=== PATIENT | female | born 1980 | race Two or more races ===

== ENCOUNTER 2020-04-06 12:07 | Outpatient (REF) | payer MEDICAID, OTHER, SELFPAY | END 2020-04-06 12:08 | disposition home or self-care (01) | LOC: HO.LAB 12:07 | PROVIDERS: Visit Provider Internal Medicine | DX: Z20.822 Contact with and (suspected) exposure to COVID-19 (principal) | CPT/HCPCS: 36415; C9803; U0003; U0005 ==

== ENCOUNTER 2020-06-09 11:22 | Outpatient (REF) | payer MEDICAID, OTHER, SELFPAY ==
[2020-06-09 13:30] LABS: SARS COV2 PCR INHOUSE POSITIVE (Negative)
== END 2020-06-09 11:23 | disposition home or self-care (01) ==
LOC: HO.LAB 11:22
PROVIDERS: Visit Provider Internal Medicine
DX: Z20.822 Contact with and (suspected) exposure to COVID-19 (principal)
CPT/HCPCS: C9803; U0003

== ENCOUNTER 2020-07-13 11:38 | Outpatient (REF) | payer MEDICAID, OTHER, SELFPAY ==
--- NOTE | ~2020-07-13 | XR_ITS ---
EXAMINATION: XR LUMBOSACRAL SPINE CLINICAL INFORMATION: COMPARISON: None TECHNIQUE: Three views of the lumbosacral spine. FINDINGS: The vertebral bodies and posterior elements are normal. The disc spaces are preserved and the vertebral alignment is normal. The paraspinal soft tissues are normal. XR/XR lumbar spine 2-3V IMPRESSION: Unremarkable examination.
--- NOTE | ~2020-07-13 | XR_ITS ---
EXAMINATION: XR KNEE, RIGHT CLINICAL INFORMATION: Pain COMPARISON: None TECHNIQUE: Four views of the right knee. FINDINGS: Bones and soft tissues are normal. No fracture or joint effusion. Alignment is anatomic. Joint spaces are well maintained. No abnormal soft tissue calcification. XR/XR knee RT 4V IMPRESSION: Normal right knee.
== END 2020-07-13 11:39 | disposition home or self-care (01) ==
LOC: HO.XRAY 11:38
PROVIDERS: PCP Family Medicine; Visit Provider Family Medicine
DX: M25.561 Pain in right knee (principal); M54.41 Lumbago with sciatica, right side
CPT/HCPCS: 72100; 73564

== ENCOUNTER 2021-02-22 10:20 | Outpatient (REF) | payer MEDICAID, OTHER, SELFPAY ==
--- NOTE | ~2021-02-22 | MM_ITS ---
EXAMINATION: MM DIAGNOSTIC DIGITAL BREAST TOMOSYNTHESIS, BILATERAL US DIAGNOSTIC ULTRASOUND BREAST, BILATERAL CLINICAL INFORMATION: 40-year-old with increased palpable fullness with intermittent tenderness mid upper outer left breast. Prior history bilateral fibrocystic changes. No known family history breast cancer. The lifetime risk of breast cancer based on the Tyrer-Cuzick Model is 9%. COMPARISON: Mammography: 04/26/2017 (baseline, diagnostic, BI-RADS 2); bilateral targeted breast ultrasound 04/26/2017. TECHNIQUE: Digital breast tomosynthesis is performed in both the craniocaudal and mediolateral oblique views along with computer-aided detection (CAD). Synthesized 2D images are generated from the tomosynthesis. Ultrasound ultrasound left breast is targeted to the upper outer quadrant. Ultrasound right breast is also included mid upper breast. Both breasts are imaged using grayscale imaging and color Doppler without and with harmonics. FINDINGS: Mammography: The breasts are heterogeneously dense, which may obscure small masses (ACR BI-RADS breast composition Category c). The left breast has round focal parenchymal asymmetry with partly obscured margins in the area of palpable concern mid upper outer quadrant, approximately 3.3 cm in diameter. The right breast has oval focal parenchymal asymmetry mid 12:00 position with partly obscured margins measuring approximately 2.9 cm in diameter. There is no architectural abnormality. No coarsening of the Santhosh's ligaments or skin thickening or retraction. No abnormal calcifications. The axilla are unremarkable. Ultrasound: Left breast ultrasound demonstrates benign simple cyst at site of palpable concern 1:00-2:00 position 9 cm from nipple measuring 3.4 x 3.0 x 2.1 cm. A cyst was noted in this area on prior ultrasound 2018, measuring 1.7 x 1.5 x 0.8 cm at that time. There is no solid mass or architectural abnormality. No focal duct ectasia. Right breast ultrasound demonstrates scattered benign simple cysts upper breast, largest 12:00 position measuring 2.4 cm in diameter. There is overall dimensions of 4 cm diameter when summating the adjacent cysts. Prior ultrasound 2018 noted 2.0 cm cyst near this area. There is no solid mass or architectural abnormality. No focal duct ectasia. Results and management options were discussed with the patient at time of visit, using an aerobics instructor. MM/MM tomosynthesis diagnostic BI IMPRESSION: 1. No mammographic evidence of malignancy. 2. Bilateral simple cysts, largest on left at site of palpable concern measuring 3.4 cm. ASSESSMENT: BI-RADS 2: Benign RECOMMENDATION: 1. If the dominant cyst(s) are symptomatic, therapeutic ultrasound-guided cyst aspiration could be performed if clinically indicated. 2. Otherwise, routine annual screening mammography. This patient's information was entered into a reminder system with a target due date for their next mammogram.
== END 2021-02-22 10:21 | disposition home or self-care (01) ==
LOC: HO.MAMMO 10:20
PROVIDERS: Visit Provider Family Medicine
DX: N63.21 Unspecified lump in the left breast, upper outer quadrant (principal)
CPT/HCPCS: 76642; 77062; 77066

== ENCOUNTER 2021-03-26 11:11 | Outpatient (REF) | payer MEDICAID, OTHER, SELFPAY ==
--- NOTE | ~2021-03-26 | XR_ITS ---
EXAMINATION: XR KNEE, RIGHT CLINICAL INFORMATION: Pain right knee. COMPARISON: Right knee 07/13/2020 TECHNIQUE: Four views of the right knee. FINDINGS: Bones and soft tissues are normal. No fracture or joint effusion. Alignment is anatomic. Joint spaces are well maintained. No abnormal soft tissue calcification. XR/XR knee RT 4V IMPRESSION: Unremarkable right knee. No change from 07/13/2020
== END 2021-03-26 11:12 | disposition home or self-care (01) ==
LOC: HO.XRAY 11:11
PROVIDERS: Absent Provider Family Medicine; PCP Family Medicine; Visit Provider Nurse Practitioner
DX: M25.561 Pain in right knee (principal)
CPT/HCPCS: 73564

== ENCOUNTER 2021-07-05 11:00 | Outpatient (RCR) | payer MEDICAID, OTHER, SELFPAY | END 2021-07-20 11:02 | disposition home or self-care (01) | LOC: HO.PT 11:00 | PROVIDERS: PCP Family Medicine; Visit Provider Family Medicine | DX: M25.561 Pain in right knee (principal) | CPT/HCPCS: 97110; 97140; 97162; 97530 ==

== ENCOUNTER 2021-08-09 10:51 | Outpatient (REF) | payer MEDICAID, OTHER, SELFPAY ==
--- NOTE | ~2021-08-09 | XR_ITS ---
EXAMINATION: XR LUMBOSACRAL SPINE CLINICAL INFORMATION: Lumbago with some left sciatica. COMPARISON: None TECHNIQUE: Three views of the lumbosacral spine. FINDINGS: There is normal lumbar lordosis. The vertebral heights, alignment and disc heights are normal. No visible acute fracture, dislocation or lytic process seen. There is mild sclerosis along the SI joints likely sacroiliitis The paravertebral soft tissues are normal. XR/XR lumbar spine 2-3V IMPRESSION: Unremarkable lumbar spine exam. Bilateral sacroiliitis.
== END 2021-08-09 10:52 | disposition home or self-care (01) ==
LOC: HO.XRAY 10:51
PROVIDERS: Absent Provider Family Medicine; PCP Family Medicine; Visit Provider Emergency Medicine
DX: M54.42 Lumbago with sciatica, left side (principal)
CPT/HCPCS: 72100

== ENCOUNTER 2021-08-16 18:49 | Outpatient (REF) | payer MEDICAID, OTHER, SELFPAY ==
--- NOTE | ~2021-08-16 | MR_ITS ---
EXAMINATION: MR KNEE WITHOUT CONTRAST, RIGHT CLINICAL INFORMATION: Right knee pain. COMPARISON: None TECHNIQUE: MRI of the knee without contrast was performed using routine sequences on a high-field scanner. FINDINGS: MENISCI: Medial Meniscus: Intact Lateral Meniscus: Complex bucket-handle tear of the lateral meniscus with displacement of the flap fragment into the anteromedial aspect of the lateral compartment joint line. The tear extends from the posterior root to the junction of the anterior horn and body. The flap fragment constitutes approximately two-thirds of the meniscal tissue from the posterior horn and body. There is inner margin fraying at the orthotopic meniscal tissue of the posterior horn and body. A horizontal component of the tear propagates into the anterior horn with a small 9 mm parameniscal cyst. LIGAMENTS: Cruciate: Intact. Collateral: Intact. EXTENSOR MECHANISM: Intact. ARTICULAR CARTILAGE/BONE: Patellofemoral Compartment: Normal. Medial Compartment: Tiny marginal osteophytes at the medial compartment. Focal partial-thickness cartilage loss is present at the far lateral margin of the medial femoral condyle weightbearing surface with subtle underlying articular cortical irregularity. Lateral Compartment: There is minimal chondral thinning along the posterior margin of the lateral tibial plateau. Articular cartilage appears otherwise normal. JOINT FLUID AND BURSAE: Trace effusion. No Thompson's cyst. MR/MR knee RT wo con IMPRESSION: 1. Complex, displaced, bucket-handle tear of the lateral meniscus. 2. Minimal arthrosis in the medial and lateral compartments. 3. Trace effusion.
== END 2021-08-16 18:50 | disposition home or self-care (01) ==
LOC: HO.MRI 18:49
PROVIDERS: Visit Provider Emergency Medicine
DX: M25.561 Pain in right knee (principal)
CPT/HCPCS: 73721

== ENCOUNTER 2022-02-03 11:00 | Outpatient (RCR) | payer MEDICAID, OTHER, SELFPAY | END 2022-02-07 13:34 | disposition home or self-care (01) | LOC: HO.PT 11:00 | PROVIDERS: PCP Family Medicine; Visit Provider Nurse Practitioner | DX: M25.561 Pain in right knee (principal) | CPT/HCPCS: 97110; 97112; 97150; 97161; 97530 ==

== ENCOUNTER 2022-03-14 11:06 | Outpatient (REF) | payer MEDICAID, OTHER, SELFPAY ==
--- NOTE | ~2022-03-14 | US_ITS ---
EXAMINATION: US VENOUS ULTRASOUND WITH DOPPLER LOWER EXTREMITY, RIGHT CLINICAL INFORMATION: Right leg pain and swelling. COMPARISON: None TECHNIQUE: Ultrasound of the deep veins is performed from the right hip to the calf with compression sonography and color and pulse Doppler assessment. Spectral analysis with color-flow imaging is performed. FINDINGS: The common femoral vein is compressible and exhibits a normal phasic waveform; this suggests that the iliac veins are widely patent above. Within the proximal thigh, the visualized profunda femoris vein is normal. The examined greater saphenous vein and saphenofemoral junction are normal. Superficial femoral vein is patent in the proximal, mid and distal thigh. Popliteal vein is normal to the level of the trifurcation. On compression chaudhari scale and color Doppler images, the posterior tibial and peroneal veins of the calf are patent. No evidence of Thompson's cyst. US/US venous duplex LE RT IMPRESSION: No evidence of deep vein thrombosis in the right lower extremity.
== END 2022-03-14 11:07 | disposition home or self-care (01) ==
LOC: HO.US 11:06
PROVIDERS: Absent Provider Family Medicine; PCP Family Medicine; Visit Provider Emergency Medicine
DX: R60.0 Localized edema (principal); M79.604 Pain in right leg
CPT/HCPCS: 93971

== ENCOUNTER 2022-03-30 13:36 | Outpatient (REF) | payer MEDICAID, OTHER, SELFPAY ==
--- NOTE | ~2022-03-30 | MR_ITS ---
EXAMINATION: MR KNEE WITHOUT CONTRAST, RIGHT CLINICAL INFORMATION: Anterior right knee pain. Swelling. Meniscal repair in November 2021. Recurrence of pain and swelling following surgery. COMPARISON: Right knee MRI dated 08/16/2021. TECHNIQUE: MRI of the knee without contrast was performed using routine sequences on a high-field scanner. FINDINGS: MENISCI: Medial Meniscus: Intact. Lateral Meniscus: Interval lateral meniscectomy with removal of the previously seen centrally displaced meniscal fragment. There is persistent oblique inner margin tearing through the anterior horn and root with a possible parameniscal cyst versus synovial recess anteriorly measuring up to 1.3 cm. The attenuated meniscal body and posterior horn appear significantly irregular which could represent the postsurgical result versus irregular recurrent tearing. Correlation with surgical history is recommended. LIGAMENTS: Cruciate: Intact. Collateral: Intact. EXTENSOR MECHANISM: Intact. ARTICULAR CARTILAGE/BONE: Patellofemoral Compartment: Intact articular cartilage. Medial Compartment: Minimal articular cartilage thinning with tiny marginal osteophytes, unchanged. Lateral Compartment: Marrow edema within the lateral tibial plateau consistent with an osseous contusion. No acute fracture. JOINT FLUID AND BURSAE: [id number] joint effusion. MR/MR knee RT wo con IMPRESSION: 1. Interval lateral meniscectomy with removal of the previously seen centrally displaced meniscal fragment. There is persistent oblique inner margin tearing through the anterior horn and root with a possible parameniscal cyst versus synovial recess anteriorly measuring up to 1.3 cm. The attenuated meniscal body and posterior horn appear significantly irregular which could represent the postsurgical result versus irregular recurrent tearing. Correlation with surgical history is recommended. 2. Mild osseous contusion within the lateral tibial plateau. No acute fracture. 3. Minimal medial compartment arthrosis, unchanged. [id number] joint effusion.
== END 2022-03-30 13:37 | disposition home or self-care (01) ==
LOC: HO.MRI 13:36
PROVIDERS: PCP Family Medicine; Visit Provider Emergency Medicine
DX: M25.561 Pain in right knee (principal)
CPT/HCPCS: 73721

== ENCOUNTER 2022-06-27 10:22 | Outpatient (REF) | payer MEDICAID, OTHER, SELFPAY ==
--- NOTE | ~2022-06-27 | MM_ITS ---
EXAMINATION: MM SCREENING DIGITAL BREAST TOMOSYNTHESIS, BILATERAL CLINICAL INFORMATION: Screening. Asymptomatic. The lifetime risk of breast cancer based on the Tyrer-Cuzick Model is 10%. COMPARISON: Mammography: 02/22/2021, 04/26/2017 (baseline), bilateral breast ultrasound 02/22/2021, 04/26/2017. TECHNIQUE: Digital breast tomosynthesis is performed in both the craniocaudal and mediolateral oblique views along with computer-aided detection (CAD). Synthesized 2D images are generated from the tomosynthesis. FINDINGS: The breasts are heterogeneously dense, which may obscure small masses (ACR BI-RADS breast composition Category c). There are fibrocystic changes breast appreciated on tomography, substantially decreased mid upper outer left breast when compared with prior imaging. There are no significant masses, abnormal calcifications, or other abnormalities. No architectural abnormality or developing density. The axilla and skin contours are unremarkable. MM/MM tomosynthesis screening BI IMPRESSION: No mammographic evidence of malignancy. ASSESSMENT: BI-RADS 2: Benign RECOMMENDATION: Routine annual mammography screening. This patient's information was entered into a reminder system with a target due date for their next mammogram.
== END 2022-06-27 10:23 | disposition home or self-care (01) ==
LOC: HO.MAMMO 10:22
PROVIDERS: PCP Family Medicine; Visit Provider Family Medicine
DX: Z12.31 Encounter for screening mammogram for malignant neoplasm of breast (principal)
CPT/HCPCS: 77063; 77067

== ENCOUNTER 2022-10-17 14:21 | Outpatient (REF) | payer MEDICAID, OTHER, SELFPAY ==
[2022-10-17 17:43] LABS: MANUAL DIFF FLAG NO
[2022-10-17 18:01] LABS: Basophils Percent Auto 0.2 % (0-2); Eosinophils Absolute Auto 0.2 X10*3/uL (0.0-0.4); Eosinophils Percent Auto 2.4 % (0-4); Hematocrit 33.7 % (37.0-47.0); Hemoglobin 10.7 g/dl (12.0-16.0); Imm Gran Abs Auto 0.01 X10*3/uL (0.00-0.03); Imm Gran Pct Auto 0.2 % (0.0-0.4); Lymphocytes Absolute Auto 2.2 X10*3/uL (1.2-4.9); Lymphocytes Percent Auto 35.2 % (20-40); Mean Corpuscular HGB Conc 31.8 g/dl (31.0-35.0); Mean Corpuscular Hemoglobin 27.2 pg (27.0-33.0); Mean Corpuscular Volume 85.8 fL (80.0-98.0); Mean Platelet Volume 10.2 fL (9.4-12.3); Monocytes Absolute Auto 0.3 X10*3/uL (0.1-1.2); Monocytes Percent Auto 4.6 % (2-11); Neutrophils Absolute Auto 3.7 x10*3/uL (2.0-8.3); Neutrophils Percent Auto 57.4 % (45-73); Platelet Count 358 X10*3/uL (160-400); Red Blood Count 3.93 X10*6/uL (4.20-5.50); Red Cell Distribution Width 16.3 % (11.0-16.0); White Blood Count 6.3 X10*3/uL (4.8-10.8)
[2022-10-18 02:20] LABS: Alanine Aminotransferase 15 U/L (0-31); Alkaline Phosphatase 59 U/L (39-117); Anion Gap 10 (12-20); Aspartate Amino Transferase 19 U/L (5-31); Bilirubin Total 0.2 mg/dL (0.0-1.0); Blood Urea Nitrogen 14 mg/dL (9-16); Calcium 9.1 mg/dL (8.4-10.2); Carbon Dioxide 25 mmol/L (22-29); Chloride 108 mmol/L (96-108); Estimated Glomerular Filt Rate > 60; Glucose Random 92 mg/dL (60-115); Potassium 4.3 mmol/L (3.3-5.1); Sodium 139 mmol/L (135-145); Total Protein 6.8 g/dL (6.5-8.0)
[2022-10-18 02:25] LABS: Cholesterol 212 mg/dL; HDL Cholesterol 53 mg/dL; LDL Cholesterol Calculated 138 mg/dl; Triglycerides 106 mg/dL
[2022-10-18 02:36] LABS: Folate 14.4 ng/mL (> or = 4.0); Vitamin B12 > 2000 pg/mL (200-900)
[2022-10-18 05:24] LABS: Estimated Average Glucose 100 mg/dL; Hemoglobin A1c % 5.1 %
[2022-10-18 07:17] LABS: Reflex LDLD? No
== END 2022-10-17 14:22 | disposition home or self-care (01) ==
LOC: HO.HHCL 14:21
PROVIDERS: Visit Provider Family Medicine
DX: R53.83 Other fatigue (principal)
CPT/HCPCS: 36415; 80053; 80061; 82607; 82746; 83036; 85025

== ENCOUNTER 2023-05-29 15:29 | Outpatient (REF) | payer MEDICAID, OTHER, SELFPAY ==
[2023-05-29 17:34] LABS: MANUAL DIFF FLAG NO
[2023-05-29 17:53] LABS: Basophils Percent Auto 0.2 % (0-2); Eosinophils Absolute Auto 0.1 X10*3/uL (0.0-0.4); Eosinophils Percent Auto 1.5 % (0-4); Hematocrit 31.2 % (37.0-47.0); Hemoglobin 10.2 g/dl (12.0-16.0); Imm Gran Abs Auto 0.02 X10*3/uL (0.00-0.03); Imm Gran Pct Auto 0.2 % (0.0-0.4); Lymphocytes Absolute Auto 2.1 X10*3/uL (1.2-4.9); Lymphocytes Percent Auto 24.9 % (20-40); Mean Corpuscular HGB Conc 32.7 g/dl (31.0-35.0); Mean Corpuscular Hemoglobin 27.1 pg (27.0-33.0); Mean Platelet Volume 9.4 fL (9.4-12.3); Monocytes Absolute Auto 0.4 X10*3/uL (0.1-1.2); Monocytes Percent Auto 5.2 % (2-11); Neutrophils Absolute Auto 5.8 x10*3/uL (2.0-8.3); Platelet Count 369 X10*3/uL (160-400); Red Blood Count 3.76 X10*6/uL (4.20-5.50); Red Cell Distribution Width 15.3 % (11.0-16.0); White Blood Count 8.5 X10*3/uL (4.8-10.8)
[2023-05-29 18:12] LABS: Iron 24 mcg/dL (30-160); Percent Iron Saturation 7 % (15-50); Total Iron Binding Capacity 360 mcg/dL (228-428); Unsaturated Iron Binding 336 ug/dL
[2023-05-29 18:28] LABS: Ferritin 5 ng/mL (10-250); Vitamin D 25-OH Total 19.4 ng/mL (>30)
[2023-05-29 18:41] LABS: Vitamin B12 > 2000 pg/mL (200-900)
[2023-05-30 04:25] LABS: Syphilis Screen Nonreactive (Nonreactive)
[2023-05-30 04:31] LABS: HBS Num1 93.17 mIU/mL (0-7.99); HBc Num1 0.12 S/CO (0.00-0.79); HBsAGNum1 0.31 S/CO (0.00-0.99); HIV AB/AG Nonreactive (Nonreactive); HIV Num 1 0.06 S/CO (0.00-0.99); Hepatitis B Core Antibody Nonreactive (Nonreactive); Hepatitis B Surface Antigen Negative (Negative); ~Hepatitis B Surface Antibody REACTIVE (Nonreactive)
[2023-05-30 04:36] LABS: ~HepC Num1 0.12 S/CO (0.00-0.79); ~Hepatitis C Antibody Nonreactive (Nonreactive)
[2023-05-30 07:03] LABS: CT PCR NOT DETECTED (Not Detect.); NG PCR NOT DETECTED (Not Detect.)
== END 2023-05-29 15:30 | disposition home or self-care (01) ==
LOC: HO.HHCL 15:29
PROVIDERS: Visit Provider Family Medicine
DX: D64.9 Anemia, unspecified (principal); E55.9 Vitamin D deficiency, unspecified; Z11.3 Encounter for screening for infections with a predominantly sexual mode of transmission
CPT/HCPCS: 0353U; 36415; 82306; 82607; 82728; 82746; 83540; 85025; 86704; 86706; 86780; 86803; 87340; 87389

== ENCOUNTER 2023-06-26 13:10 | Outpatient (REF) | payer MEDICAID, OTHER, SELFPAY ==
--- NOTE | ~2023-06-26 | US_ITS ---
EXAMINATION: US PELVIS CLINICAL INFORMATION: Pelvic pain; status-post IUD placement; the last menstrual period was on 06/12/2021. COMPARISON: Pelvic ultrasound dated 06/21/2016. TECHNIQUE: Ultrasound of the pelvis is performed using both transabdominal and transvaginal transducers along with Doppler. Transvaginal imaging is performed due to inadequate visualization transabdominally. FINDINGS: Uterus: The uterus is anteverted and anteflexed. The uterus measures 10.6 x 5.7 x 7.0 cm. The double wall endometrial thickness is 17 mm. No intrauterine device is appreciated. The uterus is smooth in contour and has normal myometrial echogenicity. No visible fibroid. Adnexa: Both ovaries are visualized. There is normal color flow to the adnexa. There is no ovarian torsion. There is no pelvic ascites or fluid collection. Right ovary measures 3.1 x 2.1 x 1.3 cm, volume 4.4 mL. Left ovary measures 3.1 x 2.1 x 2.7 cm, volume 10.1 mL. The left ovary contains a 2.2 x 1.0 x 1.4 cm corpus luteum cyst, for which no imaging follow-up is recommended. US/US pelvic and transvaginal IMPRESSION: 1. The endometrial stripe thickness is borderline enlarged. Gynecology evaluation and management are recommended, with consideration for tissue sampling, if clinically indicated. 2. No intrauterine device is presently seen. 3. A 2.2 cm left ovarian corpus luteum cyst is incidentally noted, which requires no imaging follow-up.
== END 2023-06-26 13:11 | disposition home or self-care (01) ==
LOC: HO.US 13:10
PROVIDERS: PCP Family Medicine; Visit Provider Family Medicine
DX: R10.2 Pelvic and perineal pain (principal)
CPT/HCPCS: 76830; 76856

== ENCOUNTER 2023-10-09 16:02 | Outpatient (REF) | payer MEDICAID, OTHER, SELFPAY ==
[2023-10-09 17:42] LABS: MANUAL DIFF FLAG NO
[2023-10-09 17:53] LABS: Basophils Percent Auto 0.4 % (0-2); Eosinophils Absolute Auto 0.2 X10*3/uL (0.0-0.4); Eosinophils Percent Auto 2.4 % (0-4); Hematocrit 33.9 % (37.0-47.0); Hemoglobin 10.9 g/dl (12.0-16.0); Imm Gran Abs Auto 0.01 X10*3/uL (0.00-0.03); Imm Gran Pct Auto 0.1 % (0.0-0.4); Immature Retic Fraction 15.3 % (3.0-15.9); Lymphocytes Absolute Auto 2.6 X10*3/uL (1.2-4.9); Lymphocytes Percent Auto 33.2 % (20-40); Mean Corpuscular HGB Conc 32.2 g/dl (31.0-35.0); Mean Corpuscular Hemoglobin 27.2 pg (27.0-33.0); Mean Corpuscular Volume 84.5 fL (80.0-98.0); Mean Platelet Volume 9.9 fL (9.4-12.3); Monocytes Absolute Auto 0.5 X10*3/uL (0.1-1.2); Monocytes Percent Auto 5.9 % (2-11); Neutrophils Absolute Auto 4.5 x10*3/uL (2.0-8.3); Platelet Count 321 X10*3/uL (160-400); Red Blood Count 4.01 X10*6/uL (4.20-5.50); Red Cell Distribution Width 16.4 % (11.0-16.0); Reticulocyte Percent 1.7 % (0.5-1.8); Reticulocytes Absolute 0.067 X10*6/uL (0.026-0.095); White Blood Count 7.8 X10*3/uL (4.8-10.8)
[2023-10-09 18:06] LABS: Iron 61 mcg/dL (30-160); Percent Iron Saturation 17 % (15-50); Total Iron Binding Capacity 362 mcg/dL (228-428); Unsaturated Iron Binding 301 ug/dL
[2023-10-09 18:22] LABS: Ferritin 7 ng/mL (10-250)
[2023-10-09 18:47] LABS: Folate 12.9 ng/mL (> or = 4.0); Vitamin B12 > 2000 pg/mL (200-900)
== END 2023-10-09 16:03 | disposition home or self-care (01) ==
LOC: HO.HHCL 16:02
PROVIDERS: Visit Provider Family Medicine
DX: D64.9 Anemia, unspecified (principal)
CPT/HCPCS: 82607; 82728; 82746; 83540; 85025; 85045

== ENCOUNTER 2023-10-30 14:54 | Outpatient (REF) | payer MEDICAID, OTHER, SELFPAY ==
--- NOTE | ~2023-10-30 | MM_ITS ---
EXAMINATION: MM SCREENING DIGITAL BREAST TOMOSYNTHESIS, BILATERAL CLINICAL INFORMATION: Screening. Asymptomatic. COMPARISON: Mammography: Comparison is made with available priors TECHNIQUE: Digital breast tomosynthesis is performed in both the craniocaudal and mediolateral oblique views along with computer-aided detection (CAD). Synthesized 2D images are generated from the tomosynthesis. FINDINGS: The breasts are heterogeneously dense, which may obscure small masses (ACR BI-RADS breast composition Category c). There are no significant masses, abnormal calcifications, or other abnormalities. MM/MM tomosynthesis screening BI IMPRESSION: No mammographic evidence of malignancy. ASSESSMENT: BI-RADS BI-RADS 1 - Negative RECOMMENDATION: Routine annual mammography screening. 1 year F/U This examination should not preclude the clinical evaluation of a suspicious palpable abnormality. This patient's information was entered into a reminder system with a target due date for their next mammogram. Electronically signed by: Millie Dubois DO 11/24/2023 12:30 PM EDT
== END 2023-10-30 14:55 | disposition home or self-care (01) ==
LOC: HO.MAMMO 14:54
PROVIDERS: Visit Provider Family Medicine
DX: Z12.31 Encounter for screening mammogram for malignant neoplasm of breast (principal)
CPT/HCPCS: 77063; 77067

== ENCOUNTER → 2023-10-30 15:15 | Outpatient (BNV) | payer SELFPAY | PROVIDERS: Visit Provider Internal Medicine | DX: Z12.31 Encounter for screening mammogram for malignant neoplasm of breast (principal) | CPT/HCPCS: 77063; 77067 ==

== ENCOUNTER 2024-03-11 10:42 | Outpatient (REF) | payer SELFPAY ==
--- NOTE | ~2024-03-11 | XR_ITS ---
EXAMINATION: XR ELBOW 3 VIEWS LEFT HISTORY: left elbow pain, likely epicondylitis COMPARISON: There are no prior studies available for comparison. FINDINGS: Four views of the left elbow are submitted. Osseous mineralization is normal. There is no fracture or dislocation. The joint spaces are preserved. The soft tissues are unremarkable. There is no joint effusion. XR/XR elbow LT min 3V IMPRESSION: Unremarkable examination of the left elbow. Electronically signed by: Parrish Robert MD 03/11/2024 11:53 AM EST
== END 2024-03-11 10:43 | disposition home or self-care (01) ==
LOC: HO.HHCX 10:42
PROVIDERS: Visit Provider Family Medicine
DX: M25.522 Pain in left elbow (principal)
CPT/HCPCS: 73080

== ENCOUNTER → 2024-03-11 10:42 | Outpatient (BNV) | payer SELFPAY | PROVIDERS: Visit Provider Radiology Diagnostic Radiology | DX: M25.522 Pain in left elbow (principal) | CPT/HCPCS: 73080 ==

== ENCOUNTER 2024-10-07 11:42 | Outpatient (REF) | payer MEDICAID, OTHER, SELFPAY ==
--- NOTE | ~2024-10-07 | XR_ITS ---
EXAMINATION: XR LUMBOSACRAL SPINE CLINICAL INFORMATION: low back pain COMPARISON: August 09, 2021 TECHNIQUE: Three views of the lumbosacral spine. FINDINGS: There are 5 nonrib-bearing lumbar vertebral bodies. Vertebral body height and alignment is preserved. There is minimal evidence of disc space narrowing. There is sclerosis on the iliac side of the SI joints. XR/XR lumbar spine 2-3V IMPRESSION: Unremarkable lumbar spine Stable osteitis condensans ilii. Electronically signed by: Tomi Herndon MD 10/07/2024 01:24 PM EDT
--- OUTSIDE RECORDS SUMMARY | 2024-10-07 12:36 | XMS_ITS | Clinical Summary ---
Author Organization [employer] Address [address] [facility] [address] [place] [address] Care Team Providers Care Business Education Instructor Name Role Phone Khushboo Hernandez MD Unavailable Khushboo Hernandez MD Primary Care Provider [phone] Allergies No known active allergies Medications copper (Paragard) IUD Activ e Diclofenac Sodium 1 % gel APPLY 4 GRAMS TO RIGHT KNEE FOUR TIMES DAILY NEEDED FOR PAIN. NO MORE THAN 16 GRAMS PER KNEE OR 32 GRAMS PER DAY 2 Active hydrocortisone 2.5 % cream APPLY TO THE AFFECTED AREA(S) SPARINGLY TWICE DAILY 2 Active Vitamin D High Potency 25 MCG (1000 UT) capsule Take 1 capsule (25 mcg) by mouth in the morning. 90 capsule 3 4 Active acetaminophen (Tylenol Extra Strength) 500 MG tablet Take one or two tablets by mouth every 8 hours as needed for pain or fever. Maximum 6 tablets per day. 90 tablet 1 5 Active Ferrous Fumarate 324 MG tablet Take 324 mg by mouth every other day. 90 tablet 3 5 Active Blood Pressure [facility] Check BP daily 1 each 5 Active Active Problems Problem Noted Date Diagnosed Date Elevated BP without diagnosis of hypertension Assessment & Plan (08/16/2024 5:29 AM EDT): -Goal BP < 130/80 per ACC/AHA guideline (Treatment threshold >=140/90) - Borderline BP -Continue working on lifestyle modifications -Recommended self-monitoring BP. -Continue current medications: Health care maintenance 08/16/2024 Assessment & Plan (08/16/2024 5:42 AM EDT): Physical exam 08/05/2024 Immunizations: Due for COVID. Dental Care: up to date Cancer screening: Breast: mammo 10/30/23 BI-RADS 1 Colon: average risk. Start at age 45 Cervix: last cotest in 2021. Double negative. Hx LGSIL. Bone health: Risk factors for osteoporosis: vitamin D deficiency DEXA start at recommended age per guideline STI screening: negative in May 2023. Patient is not in relationship since then and declines another testing at this time Numbness and tingling in both hands 08/05/2024 Assessment & Plan (08/16/2024 5:23 AM EDT): - most likely carpal tunnel syndrome - evaluate with NCT/EMG - will prescribe wrist braces Pelvic pain 10/09/2023 Assessment & Plan (03/04/2024 4:46 PM EST): Left side US in June showed left ovarian cyst, benign Recommended NSAIDs prn Upcoming appointment with [facility] [employer] [facility] Assessment & Plan (10/09/2023 3:46 PM EDT): Left side US in June showed left ovarian cyst, benign Recommended NSAIDs prn Upcoming appointment with [facility] [employer] Left elbow pain 10/09/2023 Assessment & Plan (08/16/2024 5:28 AM EDT): - left lateral epicondylitis - s/p steroid injection by Dr. Kyle in July 2024 - ice, activity modification, judicious use of NSAIDs Assessment & Plan (03/04/2024 4:47 PM EST): - likely left lateral epicondylitis - ice, activity modification, judicious use of NSAIDs - pt does not want injections Assessment & Plan (10/09/2023 3:47 PM EDT): - likely left lateral epicondylitis - ice, activity modification, judicious use of NSAIDs Anemia 05/29/2023 Assessment & Plan (08/16/2024 5:25 AM EDT): She was prescribed ferrous sulfate, but patient reports intolerance due to diarrhea Labs ordered for recheck She was prescribed ferrous gluconate to be taken every other day Assessment & Plan (03/04/2024 4:50 PM EST): She was prescribed ferrous sulfate, but patient reports intolerance due to diarrhea Labs ordered for recheck She will be put on a new iron supplement that she will take every other day Assessment & Plan (10/10/2023 8:34 AM EDT): She was prescribed ferrous sulfate, but patient reports intolerance due to diarrhea Labs ordered for recheck Assessment & Plan (05/30/2023 5:13 PM EDT): Labs ordered for recheck Plantar wart 05/27/2023 Assessment & Plan (06/12/2023 5:45 AM EDT): - Recommended trying OTC medication Dental calculus 05/16/2023 Gingival bleeding 05/16/2023 Complex tear of lateral meniscus of right knee 0 04/07/2022 Assessment & Plan (10/09/2023 3:45 PM EDT): -MRI on 08/16/21 showed complex displaced lateral meniscus tear. Minimal arthrosis in med / lateral compartment. -11/17/21 right knee partial lateral meniscectomy and lateral compartment chondroplasty -03/30/22 MRI shows postsurgical change vs. Recurrent tear. Small to moderate effusion. -last seen by [facility] provider on 06/06/22, given reassurance and recommended to continue exercise and meloxicam prn. Offered steroid injection prn. -continue current treatment plan -renew diclofenac gel Assessment & Plan (10/21/2022 11:56 AM EDT): -MRI on 08/16/21 showed complex displaced lateral meniscus tear. Minimal arthrosis in med / lateral compartment. -11/17/21 right knee partial lateral meniscectomy and lateral compartment chondroplasty -03/30/22 MRI shows postsurgical change vs. Recurrent tear. Small to moderate effusion. -last seen by [facility] provider on 06/06/22, given reassurance and recommended to continue exercise and meloxicam prn. Offered steroid injection prn. -continue current treatment plan -renew diclofenac gel Assessment & Plan (04/16/2022 5:38 PM EST): -MRI on 08/16/21 showed complex displaced lateral meniscus tear. Minimal arthrosis in med / lateral compartment. -11/17/21 right knee partial lateral meniscectomy and lateral compartment chondroplasty -03/30/22 MRI shows postsurgical change vs. Recurrent tear. Small to moderate effusion. History of lateral meniscus repair of right knee 04/07/2022 Assessment & Plan (08/05/2024 8:58 AM EDT): -s/p partial lateral meniscectomy and lateral compartment chondroplasty on 11/17/[address] Shultz in [facility] Assessment & Plan (10/10/2023 8:34 AM EDT): -s/p partial lateral meniscectomy and lateral compartment chondroplasty on 11/17/[address] Shultz in [facility] Assessment & Plan (10/21/2022 11:59 AM EDT): -s/p partial lateral meniscectomy and lateral compartment chondroplasty on 11/17/[address] Shultz in [facility] Assessment & Plan (04/07/2022 6:16 AM EST): -s/p partial lateral meniscectomy and lateral compartment chondroplasty on 11/17/[address] Shultz in [facility] Chronic pain of right knee 03/24/2021 Assessment & Plan (08/05/2024 8:58 AM EDT): -MRI on 08/16/21 showed complex displaced lateral meniscus tear. Minimal arthrosis in med / lateral compartment. -11/17/21 right knee partial lateral meniscectomy and lateral compartment chondroplasty -03/30/22 MRI findings postsurgical changes vs. Recurrent tear of lateral meniscus tear. -last seen by [facility] in June 2022 -continue meloxicam, diclofenac topical, and home exercise program Assessment & Plan (10/09/2023 3:45 PM EDT): -MRI on 08/16/21 showed complex displaced lateral meniscus tear. Minimal arthrosis in med / lateral compartment. -11/17/21 right knee partial lateral meniscectomy and lateral compartment chondroplasty -03/30/22 MRI findings postsurgical changes vs. Recurrent tear of lateral meniscus tear. -last seen by [facility] in June 2022 -continue meloxicam, diclofenac topical, and home exercise program Assessment & Plan (10/21/2022 11:57 AM EDT): -MRI on 08/16/21 showed complex displaced lateral meniscus tear. Minimal arthrosis in med / lateral compartment. -11/17/21 right knee partial lateral meniscectomy and lateral compartment chondroplasty -03/30/22 MRI findings postsurgical changes vs. Recurrent tear of lateral meniscus tear. -last seen by [facility] in June 2022 -continue meloxicam, diclofenac topical, and home exercise program Assessment & Plan (04/16/2022 5:37 PM EST): -MRI on 08/16/21 showed complex displaced lateral meniscus tear. Minimal arthrosis in med / lateral compartment. -11/17/21 right knee partial lateral meniscectomy and lateral compartment chondroplasty -03/30/22 MRI findings postsurgical changes vs. Recurrent tear of lateral meniscus tear. -Recommended pt to schedule appt with orthopedist; will fax MRI report -Continue judicious use of ibuprofen. Alternate with APAP. Continue diclofenac gel. Overweight 03/15/2018 Vitamin D deficiency 11/17/2016 Assessment & Plan (08/05/2024 8:57 AM EDT): Continue vitamin D 1000 Units once daily. Assessment & Plan (03/04/2024 4:47 PM EST): Continue vitamin D 1000 Units once daily. Assessment & Plan (05/30/2023 3:43 PM EDT): Continue vitamin D 1000 Units once daily. Assessment & Plan (10/21/2022 11:58 AM EDT): Continue vitamin D History of abnormal cervical Pap smear 7 Assessment & Plan (08/16/2024 5:23 AM EDT): -Previously followed by [facility] -Hx ASCUS with positive high-risk HPV. s/p colposcopy in September 2016. -PAP 05/02/17 LSIL HPV neg, Colposcopy 05/15/17 was NILM. -03/15/18 ASCUS with negative high-risk HPV -05/14/19 NILM with negative high-risk HPV -05/11/21 NILM with negative high-risk HPV Assessment & Plan (10/21/2022 12:07 PM EDT): -Previously followed by [facility] [employer] -Hx ASCUS with positive high-risk HPV. s/p colposcopy in September 2016. -PAP 05/02/17 LSIL HPV neg, Colposcopy 05/15/17 was NILM. -03/15/18 ASCUS with negative high-risk HPV -05/14/19 NILM with negative high-risk HPV -05/11/21 NILM with negative high-risk HPV Resolved Problems Problem Noted Date Diagnosed Date Resolved Date IUD (intrauterine device) in place 10/21/2022 10/09/2023 Encounters Date Type Department Care Team Description 08/19/2024 Telephone [facility] [address] [place] [phone] Khushboo Hernandez MD DME Wrist Brace 08/16/2024 Orders Only [facility] [address] [place] [address] Khushboo Hernandez MD 08/09/2024 Telephone [facility] [address] [place] [address] Vy Reese MA september recall 08/05/2024 10:30 AM EDT Office Visit [facility] [address] [place] [phone] Khushboo Hernandez MD Routine general medical examination at a health care facility (Primary Dx); Vitamin D deficiency; Anemia, unspecified type; Left elbow pain; History of lateral meniscus repair of right knee; Chronic pain of right knee; Chronic bilateral low back pain, unspecified whether sciatica present; Numbness and tingling in both hands; Screening for diabetes mellitus; Screening for lipid disorders; Dietary counseling; Exercise counseling; Overweight; History of abnormal cervical Pap smear; Elevated BP without diagnosis of hypertension; Bilateral carpal tunnel syndrome; Health care maintenance 08/05/2024 Travel 08/02/[address] [address] Khushboo Hernandez MD chart prep 07/25/2024 Patient Outreach [address] [address] Khushboo Hernandez MD Pre-visit Planning (SDOH screening is negative , Tobacco screening is negative) 07/16/2024 9:30 AM EDT Procedure Visit [address] [address] Monica Kyle MD Epicondylitis elbow, medial, left (Primary Dx) 07/16/2024 Travel from Last 3 Months Immunizations Immunization Administration Dates Next Due Hep A, Adult 03/05/2013,12/05/2006 Hep B, Adolescent or Pediatric 08/20/2007,2006,09/05/2006 Influenza, IIV3, injectable 12/17/2009 Influenza, seasonal, injecta ble, preservative free 12/29/2015 TD (adult), 2 Lf tetanus tox oid, preservative free, adsorbed 09/05/2006 Tdap 11/28/2023,03/05/2013 Family History Medical History Relation Name Comments Cancer Neg Hx Coronary artery disease Neg Hx Diabetes Neg Hx Hypertension Neg Hx Social History Tobacco Use Types Packs/Day Years Used Date Smoking Tobacco: Never Passive Smoke Exposure: Never Smokeless Tobacco: Never Tobacco Cessation:Counseling Given: Not Answered Depression Answer Date Recorded Patient Health Questionnaire-9 Score 0 03/04/2024 Patient Health Questionnaire-9 Score 0 03/04/2024 Last PHQ-9: Questionnaire Data Not on file 1 Housing Stability Answer Date Recorded What is your housing situation today? I have trey santiago 03/04/[address] you li ve. Do you have problems with any of the following? None of the above 03/04/2024 Food Insecurity Answer Date Recorded Within the past 12 months, y ou worried that your food would run out before you got money to buy more: Never True 03/04/2024 Within the past 12 months,th e food you bought just didn't last and you didn't have enough money to get more: Never True Transportation Answer Date Recorded In the past 12 months, has l ack of transportation kept you from medical appts, meetings, work or from getting things needed for daily living? No 03/04/2024 Utilities Answer Date Recorded In the past 12 months, has t he electric, gas, oil or water company threatened to shut off services in your home? No 03/04/2024 Depression Answer Date Recorded Patient Health Questionnaire-2 Score 0 03/04/2024 Internet Access Answer Date Recorded Internet Access Q1 Yes 03/04/2024 Internet Access Q2 Not on file 03/04/2024 Comments Unknown Sex and Gender Information Value Date Recorded Sex Assigned at Female 01/03/2022 10:18 AM EDT Legal Sex Female 10:18 AM EDT Gender Identity Female 01/03/2022 10:18 AM EDT Sexual Orientation Choose not to disclose 2022 2:30 PM EST Sexual Orientation Straight 03/15/2022 2 :30 PM EST Last Filed Vital Signs Vital Sign Reading Time Taken Comments Blood Pressure 140/88 08/05/2024 10:45 AM EDT Pulse 53 08/05/2024 10:25 AM EDT Temperature 36.3 C (97.3 F) 08/05/2024 10:25 AM EDT Respiratory Rate 20 08/05/2024 10:25 AM EDT Oxygen Saturation 99% 08/05/2024 10:25 AM EDT Inhaled Oxygen Concentration - - Weight 61.4 kg (135 lb 6.4 oz) 08/05/2024 10:25 AM EDT Height 152.4 cm (5') 08/05/2024 10:25 AM EDT Body Mass Index 26.44 08/05/2024 10:25 AM EDT Plan of Treatment Upcoming Encounters Date Type Department Care Team (Late st Contact Info) Description 10/21/2024 9:30 AM EDT Office Visit [facility] [address] [facility] [place] [address] Khushboo Hernandez MD [address] [place] [address] Health Maintenance Due Date Last Done Comments Family Planning (PISQ) 07/24/1995 HPV Vaccines (1 - 3-dose series) 07/24/1995 Dental Oral Exam 09/06/2021 03/08/2021, 01/2018, 07/19/2016, Additional history exists COVID-19 Vaccine ( season) 2023 12/21/2020, 11/30/2020 Dental Prophylaxis 11/17/2023 05/16/2023, 0 10/11/2021, 03/08/2021, Additional history exists Dental X-Ray: Full Mouth 03/09/2024 022, 07/31/2013, 07/31/2013, Additional history exists Dental X-Ray: Bitewings 05/16/2024 05/16/19 24, 03/08/2021, 02/13/2018, Additional history exists Alcohol/Substance Use Screening 10/08/2024 10/09/2023 Influenza Vaccine (#1) 2024 12/29/2015, 2009 Depression Screening 03/04/2025 03/04/2024, 03/04/20 24 SDOH Screening 07/25/2025 07/25/2024 Disability Screening 08/05/2025 08/05/2024 Tobacco Screening 08/16/2025 08/16/2024 Mammogram 10/29/2025 10/30/2023, 04/2 06/2022, 02/22/2021, Additional history exists Cervical Cancer Screening 11/20/2028 HPV/Cotest 11/20/2028 11/21/2023, 02/0 10/2021, 03/15/2018, Additional history exists Pap Smear 11/20/2028 11/21/2023, 04/13/2021 Zoster Vaccines (1 of 2) 2030 DTaP/Tdap/Td Vaccines (3 - Td or Tdap) 11/27/2033 11/28/2023, 03/05/2013, 09/05/2006 RSV Patients and Patients Aged 60 years or older (1 - 1-dose 75+ series) 07/24/2055 Hepatitis B Vaccines Discontinued 08/20/2007, 11/20/2006, 09/05/2006 Hepatitis A Vaccines Aged Out 03/05/2013, 12/06/19 07 No longer eligible based on patient's age to complete this topic HIV Screening Completed 05/29/2023, 06/2020, 03/21/2019 Hepatitis C Screening Completed 05/29/2023 , 07/07/2020, 03/21/2019 HIB Vaccines Aged Out No longer eligi ble based on patient's age to complete this topic IPV Vaccines Aged Out No longer eligi ble based on patient's age to complete this topic Meningococcal B Vaccine Aged Out No l onger eligible based on patient's age to complete this topic Meningococcal Vaccine Aged Out No vielka linwood eligible based on patient's age to complete this topic Pneumococcal Vaccine: Pediatrics (0 to 5 Years) and At-Risk Patients (6 to 49) Years Aged Out No longer eligible based on patient's age to complete this topic RSV under 20 months Aged Out No longe r eligible based on patient's age to complete this topic Rotavirus Vaccines Aged Out No longer eligible based on patient's age to complete this topic Procedures Procedure Name Priority Date/Time Associated Diagnosis Comments CA ARTHROCENTESIS ASPIR&/INJ INTERM JT/BURS W/US Routine 07/16/2024 9:47 AM EDT Epicondylitis elbow, medial, left HM PAP/HPV Routine 11/21/2023 BI MAMMOGRAM SCREENING TOMOSYNTHESIS BILATERAL Routine 10/30/2023 3:00 PM EDT Breast cancer screening by mammogram HIV 1/2 ANTIGEN/ANTIBODY, FOURTH GENERATION W/RFL Routine 05/29/2023 3:35 PM EDT Routine screening for STI (sexually transmitted infection) HEPATITIS C AB W/REFL TO HCV RNA, QN, PCR Routine 05/29/2023 3:32 PM EDT Routine screening for STI (sexually transmitted infection) Full PROPHYLAXIS - ADULT Routine 05/16/2023 10:00 AM EDT Dental calculus Gingival bleeding BITEWINGS - 4 RADIOGRAPHIC IMAGES Routine 05/16/2023 10:00 AM EDT Dental calculus Gingival bleeding INTRAORAL - COMPLETE SERIES OF RADIOGRAPHIC IMAGES Routine 03/08/2021 12:00 AM EST PERIODIC ORAL EVALUATION - ESTABLISHED PATIENT Routine 03/08/2021 12:00 AM EST from Last 3 Months or Most Recently Relevant to Health Maintenance Results * CA ARTHROCENTESIS ASPIR&/INJ INTERM JT/BURS W/US (07/16/2024 9:47 AM EDT) Narrative Monica Kyle MD - 07/16/2024 9:47 AM EDT Monica Kyle MD 07/16/2024 9:50 AM Arthrocentesis Date/Time: 07/16/2024 9:47 AM Performed by: Monica Kyle MD Authorized by: Monica Kyle MD Consent: Consent obtained: Verbal and written Consent given by: Patient Risks, benefits, and alternatives were discussed: yes Risks discussed: Pain Alternatives discussed: Referral Malcom protocol: Procedure explained and questions answered to patient or proxy's satisfaction: yes Relevant documents present and verified: yes Test results available: yes Imaging studies available: yes Required blood products, implants, devices, and special equipment available: yes Site/side marked: yes Immediately prior to procedure, a time out was called: yes Patient identity confirmed: Verbally with patient Location: Location: Elbow Elbow: L elbow Anesthesia: Anesthesia method: Topical application Procedure details: Preparation: Patient was prepped and draped in usual sterile fashion Ultrasound guidance: yes Approach: Medial Steroid injected: yes Specimen collected: no Post-procedure details: Dressing: Adhesive bandage Procedure completion: Tolerated Monica Kyle MD IN CLINIC/BEDSIDE ORDERABLES Fin al Result * HM PAP/HPV (11/21/2023) Pap Smear 1. NILM 1. NILM HPV Not Detected Undetected, Indeterminat e, Quantitative , Not Detected Historical Provider [facility] Final Result * BI Mammogram Screening Tomosynthesis Bilateral (10/30/2023 3:00 PM EDT) Anatomical Region Laterality Modality Breast Bilateral Mammography 10/30/2023 3:00 PM EDT Narrative 11/24/2023 12:33 PM EDT [address] [place], [place] [address] Mammography Report Signed Patient: Jennie Giang MR#: [id number] : 1980 Acct:[id number] Age/Sex: 43 / F ADM Date: 10/30/23 Loc: HO.MAMMO Attending Dr: Khushboo Hernandez MD Ordering Physician: Khushboo Hernandez MD Results: 1Negative Date of Service: 10/30/23 Follow Up: 1 Year From Orig ina Mammogram Procedure(s): MM tomosynthesis screening BI Accession Number(s): [id number] cc: Khushboo Hernandez MD EXAMINATION: MM SCREENING DIGITAL BREAST TOMOSYNTHESIS, BILATERAL CLINICAL INFORMATION: Screening. Asymptomatic. COMPARISON: Mammography: Comparison is made with available priors TECHNIQUE: Digital breast tomosynthesis is performed in both the craniocaudal and mediolateral oblique views along with computer-aided detection (CAD). Synthesized 2D images are generated from the tomosynthesis. FINDINGS: The breasts are heterogeneously dense, which may obscure small masses (ACR BI-RADS breast composition Category c). There are no significant masses, abnormal calcifications, or other abnormalities. MM/MM tomosynthesis screening BI IMPRESSION: No mammographic evidence of malignancy. ASSESSMENT: BI-RADS BI-RADS 1 - Negative RECOMMENDATION: Routine annual mammography screening. 1 year F/U This examination should not preclude the clinical evaluation of a suspicious palpable abnormality. This patient's information was entered into a reminder system with a target due date for their next mammogram. Electronically signed by: Millie Dubois DO 11/24/2023 12:30 PM EDT Dictated By: Millie Dubois DO Signed By: <Electronically signed by Millie Dubois DO in OV> 11/24/23 1230 DD/ 1500 TD/TT: 10/30/23 [address] Head: Procedure Note Donotuseinterpreter, Image - 11/24/2023 [facility] [address] [place] [address] [place] [address] Mammography Report Signed Patient: Jennie Giang DMR#: [id number] : 1980Acct:[id number] Age/Sex: 43 / FADM Date: 10/30/23 Loc: HO.MAMMO Attending Dr: Khushboo Hernandez MD Ordering Physician: Khushboo Hernandez MDResults: 1Negative Date of Service: 10/30/23Follow Up: 1 Year From Orig inal Mammogram Procedure(s): MM tomosynthesis screening BI Accession Number(s): [id number] cc: Khushboo Hernandez MD EXAMINATION: MM SCREENING DIGITAL BREAST TOMOSYNTHESIS, BILATERAL CLINICAL INFORMATION: Screening. Asymptomatic. COMPARISON: Mammography: Comparison is made with available priors TECHNIQUE: Digital breast tomosynthesis is performed in both the craniocaudal and mediolateral oblique views along with computer-aided detection (CAD). Synthesized 2D images are generated from the tomosynthesis. FINDINGS: The breasts are heterogeneously dense, which may obscure small masses (ACR BI-RADS breast composition Category c). There are no significant masses, abnormal calcifications, or other abnormalities. MM/MM tomosynthesis screening BI IMPRESSION: No mammographic evidence of malignancy. ASSESSMENT: BI-RADS BI-RADS 1 - Negative RECOMMENDATION: Routine annual mammography screening. 1 year F/U This examination should not preclude the clinical evaluation of a suspicious palpable abnormality. This patient's information was entered into a reminder system with a target due date for their next mammogram. Electronically signed by: Millie Dubois DO 11/24/2023 12:30 PM EDT Dictated By: Millie Dubois DO Signed By: <Electronically signed by Millie Dubois DO in OV> 11/24/23 1230 DD/ 1500 TD/TT: 10/30/23 [address] Head: us Khushboo Hernandez MD IMG BI PROCEDURES Edited Result - Final * HIV-1/2 Antigen and Antibodies, Fourth Generation, with Reflexes (05/29/2023 3:35 PM EDT) HIV AB/AG Nonreactive Nonreactive [facility] Comment:HIV-1 p24 Ag and/or HIV-1/HIV-2 Ab not detected.A test result that is nonreactive does not exclude thepossibility of exposure to or infection with HIV-1 and/orHIV-2. Nonreactive results in this assay for individualswith prior exposure to HIV-1 and/or HIV-2 may be due toantigen and antibody levels that are below the limit ofdetection of this assay.The NPSniFloxx HIV Ag/Ab Combo assay result andsupplemental assay results should be interpreted inconjunction with the patient's clinical presentation,history and other laboratory results. If the results areinconsistent with clinical evidence, additional testing issuggested to confirm the result. Blood Venous blood specimen / Unknown 05/29/2023 3:35 PM EDT 05/29/2023 5:34 PM EDT Khushboo Hernandez MD LAB BLOOD ORDERABLES Final Resul t Performing Organization Address [facility] Co de Phone Number [facility] [address] [place] [phone] * Hepatitis C Antibody with Reflex to HCV, RNA, Quantitative, Real-Time PCR (05/29/2023 3:32 PM EDT) Hepatitis C Antibody Nonreactive Nonreactive [facility] Comment:Antibodies to HCV no t detected; does not exclude early acuteHCV infection. Blood Venous blood specimen / Unknown 05/29/2023 3:32 PM EDT 05/29/2023 5:34 PM EDT Khushboo Hernandez MD LAB BLOOD ORDERABLES Final Resul t Performing Organization Address City/[facility]/ZIP Co de Phone Number [facility] [address] [place] [address] [place] [phone] from Last 3 Months or Most Recently Relevant to Health Maintenance Insurance [facility] MEDICAID LIMITED ADULT DENTAL - [facility] FULL (MEDICAID) [address] [place] [phone] [place] [phone] [place] [address] Care Teams Business Education Instructor Relationship Specialty Start Date End Date Khushboo Hernandez MD [address] [place] [address] PCP - General Family Medicine 05/09/22 Khushboo Hernandez MD [address] [place] [address] Family Medicine 03/15/22
[2024-10-07 13:22] LABS: MANUAL DIFF FLAG NO
[2024-10-07 13:42] LABS: Hematocrit 32.8 % (37.0-47.0); Hemoglobin 10.4 g/dl (12.0-16.0); Imm Gran Abs Auto 0.01 X10*3/uL (0.00-0.03); Imm Gran Pct Auto 0.1 % (0.0-0.4); Lymphocytes Absolute Auto 1.9 X10*3/uL (1.2-4.9); Mean Corpuscular HGB Conc 31.7 g/dl (31.0-35.0); Mean Corpuscular Hemoglobin 26.4 pg (27.0-33.0); Mean Corpuscular Volume 83.2 fL (80.0-98.0); NRBC Abs Auto 0.000 X10*3/uL (0.0-0.012); NRBC Pct Auto 0.0 /100WBC (0.0-0.2); Platelet Count 370 X10*3/uL (160-400); Red Blood Count 3.94 X10*6/uL (4.20-5.50); Reticulocytes Absolute 0.071 X10*6/uL (0.026-0.095); White Blood Count 6.9 X10*3/uL (4.8-10.8)
[2024-10-07 13:45] LABS: Hemoglobin A1C 98.7517 umol/L; Total Hemoglobin (HGBA1C) 2844.2921 umol/L
[2024-10-07 13:55] LABS: Alanine Aminotransferase 24 U/L (0-31); Albumin Level 4.3 g/dL (3.5-5.0); Alkaline Phosphatase 62 U/L (39-117); Anion Gap 10 (12-20); Aspartate Amino Transferase 21 U/L (5-31); Blood Urea Nitrogen 11 mg/dL (9-16); Calcium 9.0 mg/dL (8.4-10.2); Carbon Dioxide 24 mmol/L (22-29); Chloride 110 mmol/L (96-108); Cholesterol 215 mg/dL (<200); Estimated Glomerular Filt Rate > 60; HDL Cholesterol 55 mg/dL (>40); Iron 68 mcg/dL (30-160); Percent Iron Saturation 18 % (15-50); Potassium 4.0 mmol/L (3.3-5.1); Sodium 140 mmol/L (135-145); Total Iron Binding Capacity 383 mcg/dL (228-428); Total Protein 7.0 g/dL (6.5-8.0); Triglycerides 106 mg/dL (<150); Unsaturated Iron Binding 315 ug/dL
[2024-10-07 14:09] LABS: Ferritin 5 ng/mL (10-250)
[2024-10-07 14:17] LABS: Folate 14.3 ng/mL (> or = 4.0); Vitamin B12 > 2000 pg/mL (200-900)
[2024-10-07 15:28] LABS: Reflex LDLD? No
== END 2024-10-07 11:43 | disposition home or self-care (01) ==
LOC: HO.HHCL 11:42
PROVIDERS: PCP Family Medicine; Visit Provider Family Medicine
DX: M54.50 Low back pain, unspecified (principal); G89.29 Other chronic pain; D64.9 Anemia, unspecified; E55.9 Vitamin D deficiency, unspecified; Z13.1 Encounter for screening for diabetes mellitus; Z13.220 Encounter for screening for lipoid disorders
CPT/HCPCS: 36415; 72100; 80053; 80061; 82306; 82607; 82728; 82746; 83036; 83540; 84443; 85025; 85045

== ENCOUNTER → 2024-10-07 12:16 | Outpatient (BNV) | payer SELFPAY | PROVIDERS: PCP Family Medicine; Visit Provider Radiology Diagnostic Radiology | DX: M54.50 Low back pain, unspecified (principal) | CPT/HCPCS: 72100 ==

== ENCOUNTER 2024-11-11 15:25 | Outpatient (REF) | payer MEDICAID, OTHER, SELFPAY ==
--- OUTSIDE RECORDS SUMMARY | 2024-11-11 18:27 | XMS_ITS | Encounter Summary ---
Author Organization [employer] Address [address] [facility] [address] [place] [address] Care Team Providers Care Spinning Doffer Name Role Phone Khushboo Hernandez MD Unavailable Khushboo Hernandez MD Primary Care Provider [phone] Reason for Visit * Reason Comments Med Refill Encounter Details Date Type Department Care Team (Late st Contact Info) Description 11/28/2023 Refill [facility] [address] [place], [place] [phone] Khushboo Hernandez MD [address] [place], [place] [phone] Chronic pain of right knee Social History Tobacco Use Types Packs/Day Years Used Date Smoking Tobacco: Never Passive Smoke Exposure: Never Smokeless Tobacco: Never Depression Answer Date Recorded Patient Health Questionnaire-9 Score 0 10/17/2022 Housing Stability Answer Date Recorded What is your housing situation today? I have trey santiago 01/09/[address] you li ve. Do you have problems with any of the following? None of the above 01/09/2023 Food Insecurity Answer Date Recorded Within the past 12 months, y ou worried that your food would run out before you got money to buy more: Never True 01/09/2023 Within the past 12 months,th e food you bought just didn't last and you didn't have enough money to get more: Never True 08/2022 Transportation Answer Date Recorded In the past 12 months, has l ack of transportation kept you from medical appts, meetings, work or from getting things needed for daily living? No 01/09/2023 Utilities Answer Date Recorded In the past 12 months, has t he electric, gas, oil or water company threatened to shut off services in your home? No 01/09/2023 Depression Answer Date Recorded Patient Health Questionnaire-2 Score 0 10/17/2022 Comments Unknown Sex and Gender Information Value Date Recorded Sex Assigned at Female 01/03/2022 10:18 AM EDT Legal Sex Female 10:18 AM EDT Gender Identity Female 01/03/2022 10:18 AM EDT Sexual Orientation Straight 10/22/2024 2: 22 PM EDT documented as of this encounter Plan of Treatment Upcoming Encounters Date Type Department Care Team (Late st Contact Info) Description 11/25/2024 10:30 AM EDT Office Visit [facility] [address] [place] [address] Nikolai Sagastume, YASMIN [address] [place] [address] 04/28/2025 1:00 PM EST Office Visit [facility] [address] [place] [address] Justin Aguilararis [address] [place] [address] documented as of this encounter Visit Diagnoses Diagnosis Chronic pain of right knee documented in this encounter Additional Health Concerns Assessment Noted Time PHQ-9 Depression Total Score: 0 10/18/19 1:20 PM EDT documented as of this encounter Care Teams Spinning Doffer Relationship Specialty Start Date End Date Khushboo Hernandez MD [address] [place] [address] PCP - General Family Medicine 05/09/22 Khushboo Hernandez MD [address] [place] [address] Family Medicine 03/15/22 documented as of this encounter
--- OUTSIDE RECORDS SUMMARY | 2024-11-11 18:27 | XMS_ITS | Encounter Summary ---
Author Organization [employer] Address [address] [facility] 7t [place] [address] Care Team Providers Care Research And Development Chemist Name Role Phone Khushboo Hernandez MD Unavailable Khushboo Hernandez MD Primary Care Provider [phone] Encounter Details Date Type Department Care Team (Late st Contact Info) Description 08/16/2024 Orders Only [facility] [address] [place], [place] [phone] Khushboo Hernandez MD [address] [place], [place] [phone] Social History Tobacco Use Types Packs/Day Years [...] Description 11/25/2024 10:30 AM EDT Office Visit [facility] [address] [place] [address] Nikolai Sagastume, DMD [address] [place] [address] 04/28/2025 1:00 PM EST Office Visit [facility] [address] [place] [address] Lauren, Alicia [address] [place] [address] documented as of this encounter Visit Diagnoses Not on filedocumented in this encounter Additional Health Concerns Assessment Noted Time PHQ-9 Depression Total Score: 0 03/04/20 24 2:59 PM EST documented as of this encounter Care Teams Research And Development Chemist Relationship Specialty Start Date End Date Khushboo Hernandez MD [address] [place] [address] PCP - General Family Medicine 05/09/22 Khushboo Hernandez MD [address] [place] [address] Family Medicine 03/15/22 documented as of this encounter
--- OUTSIDE RECORDS SUMMARY | 2024-11-11 18:27 | XMS_ITS | Encounter Summary ---
Author Organization [employer] Address [address] [facility] 7t [place] [address] Care Team Providers Care Warehouse Shipping Receiving Clerk Name Role Phone Khushboo Hernandez MD Unavailable Khushboo Hernandez MD Primary Care Provider [phone] Reason for Referral * Consultation (Routine) - Closed Specialty Diagnoses / Procedures Referred By Contac t Referred To Contact Obstetrics and Gynecology Diagnoses Increased endometrial stripe thickness Khushboo Hernandez MD [address] [place] [address] Phone: tel: fax: [address] Phone: tel: fax: Referral ID Status Reason Start Date Expiration Date V isits Requested Visits Authorized [id number] Closed Specialty Services Required 07/01/2023 06/30/2024 1 1 Encounter Details Date Type Department Care Team (Late st Contact Info) Description 07/01/2023 Orders Only [facility] [address] [place] [address] Khushboo Hernandez MD [address] [place], [place] [phone] Increased endometrial stripe thickness (Primary Dx) Social History Tobacco Use Types Packs/Day Years [...] Description 11/25/2024 10:30 AM EDT Office Visit [facility] [address] [place] [address] Nikolai Sagastume, YASMIN [address] [place] [address] 04/28/2025 1:00 PM EST Office Visit [facility] [address] [place] [address] Alicia Aguilar [address] [place] [address] Scheduled Referrals Name Type Priority Associated Diagnoses Orde r Schedule Referral to Obstetrics / Gynecology Outpatient Referral Routine Increased endometrial stripe thickness Expected: 07/01/2023 (Approximate), Expires: 06/30/2024 documented as of this encounter Visit Diagnoses Diagnosis Increased endometrial stripe thickness- Primary Nonspecific (abnormal) findings on radiological and other examination of genitourinary organs documented in this encounter Additional Health Concerns Assessment Noted Time PHQ-9 Depression Total Score: 0 10/18/19 23 1:20 PM EDT documented as of this encounter Care Teams Warehouse Shipping Receiving Clerk Relationship Specialty Start Date End Date Khushboo Hernandez MD [address] [place] [address] PCP - General Family Medicine 05/09/22 Khushboo Hernandez MD [address] [place] [address] Family Medicine 03/15/22 documented as of this encounter
--- OUTSIDE RECORDS SUMMARY | 2024-11-11 18:27 | XMS_ITS | Encounter Summary ---
Author Organization [employer] Address [address] [facility] [address] [place] [address] Care Team Providers Care Flight Control Tower Operator Name Role Phone Khushboo Hernandez MD Unavailable Khushboo Hernandez MD Primary Care Provider [phone] Encounter Details Date Type Department Care Team (Late st Contact Info) Description 05/31/2023 Orders Only [facility] [address] [place], [place] [phone] Khushboo Hernandez MD [address] [place], [place] [phone] Social History Tobacco Use Types Packs/Day Years [...] Description 11/25/2024 10:30 AM EDT Office Visit [facility]ULT [facility] [address] [place] [address] Nikolai Sagastume, DMD [address] [place] [address] 04/28/2025 1:00 PM EST Office Visit [facility] [address] [place] [address] Lauren, Alicia [address] [place] [address] documented as of this encounter Visit Diagnoses Not on filedocumented in this encounter Additional Health Concerns Assessment Noted Time PHQ-9 Depression Total Score: 0 10/18/19 1:20 PM EDT documented as of this encounter Care Teams Flight Control Tower Operator Relationship Specialty Start Date End Date Khushboo Hernandez MD [address] [place] [address] PCP - General Family Medicine 05/09/22 Khushboo Hernandez MD [address] [place] [address] Family Medicine 03/15/22 documented as of this encounter
--- OUTSIDE RECORDS SUMMARY | 2024-11-11 18:27 | XMS_ITS | Encounter Summary ---
Author Organization [employer] Address [address] [facility] 7t [place] [address] Care Team Providers Care Brine Mixer Operator Name Role Phone Khushboo Hernandez MD Primary Care Provider [phone] Umberto Sears Primary Care Provider Khushboo Estevez MD Unavailable Graciela Bautista MD Primary Care Provide r Khushboo Hernandez MD Primary Care Provider [phone] Encounter Details Date Type Department Care Team (Latest Contact Info) Description 03/08/2021 Abstract [facility] CONVERSIONS Dental, Provider, DDS Social History Tobacco Use Types Packs/Day Years Used Date Smoking Tobacco: Never Assessed Comments Unknown Sex and Gender Information Value Date Recorded Sex Assigned at Female 01/03/2022 10:18 AM EDT Legal Sex Female 10:18 AM EDT Gender Identity Female 01/03/2022 10:18 AM EDT Sexual Orientation Straight 10/22/2024 2: 22 PM EDT documented as of this encounter Plan of Treatment Upcoming Encounters Date Type Department Care Team ( st Contact Info) Description 11/25/2024 10:30 AM EDT Office Visit [facility] [address] [place], [place] [phone] Nikolai Sagastume, YASMIN [address] [place], [place] [phone] 04/28/2025 1:00 PM EST Office Visit [facility] [address] [facility] [place] [address] Alicia Aguilar [address] [place] [address] documented as of this encounter Visit Diagnoses Not on filedocumented in this encounter Care Teams Brine Mixer Operator Relationship Specialty Start Date End Date Khushboo Hernandez MD [address] [place] [address] PCP - General Family Medicine 03/06/18 03/14/22 Umberto Sears FNP [address] [place] [address] PCP - General Family Medicine 03/15/22 05/04/22 Graciela Bautista MD [address] [place] [address] PCP - General Internal Medicine 05/05/22 05/08/22 Khushboo Hernandez MD [address] [place] [address] PCP - General Family Medicine 05/09/22 Khushboo Hernandez MD [place], [place] [phone] Family Medicine 03/15/22 documented as of this encounter
--- OUTSIDE RECORDS SUMMARY | 2024-11-11 18:27 | XMS_ITS | Clinical Summary ---
Author Organization [employer] Address [address] [facility] [address] [place] [address] Care Team Providers Care Tool Filer Name Role Phone Khushboo Hernandez MD Unavailable Khushboo Hernandez MD Primary Care Provider [phone] Allergies No known active allergies Medications copper [...] the morning. 90 capsule 3 4 Active Additional Information Patient not taking.Reported on 10/21/2024 acetaminophen (Tylenol Extra Strength) 500 MG tablet Take one or two tablets by mouth every 8 hours as needed for pain or fever. Maximum 6 tablets per day. 90 tablet 1 5 Active Additional Information Patient not taking.Reported on 10/21/2024 Ferrous Fumarate 324 MG tablet Take 324 mg by mouth every other day. 90 tablet 3 5 Active Additional Information Patient not taking.Reported on 10/21/2024 Blood Pressure Monitor misc Check BP daily 1 each 5 Active Active Problems Problem Noted Date Diagnosed Date Chronic low back pain 10/21/2024 Assessment & Plan (10/25/2024 9:40 AM EDT): - with radiation to bilateral legs, and some weakness - completed PT / HEP for > 3 mo - continue judicious use of NSAID - evaluate with MRI Elevated BP without diagnosis of hypertension Assessment & Plan (10/25/2024 9:32 AM EDT): - Goal BP < 130/80 per ACC/AHA guideline (Treatment threshold >=140/90) - Normal today - Continue working on lifestyle modifications - Continue self-monitoring BP Assessment & Plan (08/16/2024 5:29 AM EDT): [...] in both hands 08/05/2024 Assessment & Plan (10/21/2024 9:03 AM EDT): - most likely carpal tunnel syndrome - evaluate with NCT/EMG - will prescribe wrist braces Assessment & Plan (08/16/2024 5:23 AM EDT): - most likely carpal tunnel syndrome - evaluate with NCT/EMG - will prescribe wrist braces Pelvic pain 10/09/2023 Assessment & Plan (03/04/2024 4:46 PM EST): Left side US in June showed left ovarian cyst, benign Recommended NSAIDs prn Upcoming appointment with [facility]AL[facility] TE[facility] Assessment & Plan (10/09/2023 3:46 PM EDT): Left side US in June showed left ovarian cyst, benign Recommended NSAIDs prn Upcoming appointment with [facility] Left elbow pain 10/09/2023 Assessment & Plan (10/21/2024 9:02 AM EDT): - left lateral epicondylitis - s/p steroid injection by Dr. Kyle in July 2024 - ice, activity modification, judicious use of NSAIDs Assessment & Plan (08/16/2024 5:28 AM EDT): [...] of NSAIDs Anemia 05/29/2023 Assessment & Plan (10/20/2024 6:05 AM EDT): She was prescribed ferrous sulfate, but patient reports intolerance due to diarrhea Labs ordered for recheck She was prescribed ferrous gluconate to be taken every other day Assessment & Plan (08/16/2024 5:25 AM EDT): [...] Small to moderate effusion. -last seen by [facility] provider on 06/06/22, given reassurance and [...] Small to moderate effusion. -last seen by [facility] provider on 06/06/22, given reassurance and [...] chondroplasty on 11/17/[address] Shultz in [facility] Assessment & Plan (10/10/2023 8:34 AM EDT): -s/p partial lateral meniscectomy and lateral compartment chondroplasty on 11/17/[address] Shultz in [facility] Assessment & Plan (10/21/2022 11:59 AM EDT): -s/p partial lateral meniscectomy and lateral compartment chondroplasty on 11/17/[address] Shultz in [facility] Assessment & Plan (04/07/2022 6:16 AM EST): -s/p partial lateral meniscectomy and lateral compartment chondroplasty on 11/17/[address] Shultz in [facility] Chronic pain of right knee 03/24/2021 Assessment & Plan (08/05/2024 8:58 AM EDT): -MRI on 08/16/21 showed complex displaced lateral meniscus tear. Minimal arthrosis in med / lateral compartment. -11/17/21 right knee partial lateral meniscectomy and lateral compartment chondroplasty -03/30/22 MRI findings postsurgical changes vs. Recurrent tear of lateral meniscus tear. -last seen by [facility] in June 2022 -continue meloxicam, diclofenac topical, and home exercise program Assessment & Plan (10/09/2023 3:45 PM EDT): -MRI on 08/16/21 showed complex displaced lateral meniscus tear. Minimal arthrosis in med / lateral compartment. -11/17/21 right knee partial lateral meniscectomy and lateral compartment chondroplasty -03/30/22 MRI findings postsurgical changes vs. Recurrent tear of lateral meniscus tear. -last seen by [facility] in June 2022 -continue meloxicam, diclofenac [...] Vitamin D deficiency 11/17/2016 Assessment & Plan (10/20/2024 6:05 AM EDT): Continue vitamin D 1000 Units once daily. Assessment & Plan (08/05/2024 8:57 AM EDT): [...] (08/16/2024 5:23 AM EDT): -Previously followed by [facility] -Hx ASCUS with positive high-risk HPV. s/p colposcopy in September 2016. -PAP 05/02/17 LSIL HPV neg, Colposcopy 05/15/17 was NILM. -03/15/18 ASCUS with negative high-risk HPV -05/14/19 NILM with negative high-risk HPV -05/11/21 NILM with negative high-risk HPV Assessment & Plan (10/21/2022 12:07 PM EDT): -Previously followed by [facility] TECH -Hx ASCUS with positive high-risk HPV. s/p colposcopy in September 2016. -PAP 05/02/17 LSIL HPV neg, Colposcopy 05/15/17 was NILM. -03/15/18 ASCUS with negative high-risk HPV -05/14/19 NILM with negative high-risk HPV -05/11/21 NILM with negative high-risk HPV Resolved Problems Problem Noted Date Diagnosed Date Resolved Date IUD (intrauterine device) in place 10/21/2022 10/09/2023 Encounters Date Type Department Care Team Description 10/21/2024 10:00 AM EDT Office Visit [facility] [address] [place] [phone] Alicia Aguilar Dental calculus (Primary Dx); Gingival bleeding 10/21/2024 9:30 AM EDT Office Visit [address] [address] Khushboo Hernandez MD Elevated BP without diagnosis of hypertension (Primary Dx); Vitamin D deficiency; Anemia, unspecified type; Left elbow pain; Numbness and tingling in both hands; Chronic low back pain, unspecified back pain laterality, unspecified whether sciatica present; Lumbar back pain with radiculopathy affecting left lower extremity 10/21/2024 Travel 10/18/[address] [address] Khushboo Hernandez MD 08/19/[address] [address] Khushboo Hernandez MD DME Wrist Brace 08/16/2024 Orders Only [facility] [address] [facility] [place] [address] Khushboo Hrenandez MD from Last 3 Months Immunizations Immunization Administration [...] Orientation Straight 10/22/2024 2: 22 PM EDT Last Filed Vital Signs Vital Sign Reading Time Taken Comments Blood Pressure 116/78 10/21/2024 10:07 AM EDT Pulse 52 10/21/2024 9:31 AM EDT Temperature 36.2 C (97.1 F) 10/21/2024 9:31 AM EDT Respiratory Rate 17 10/21/2024 9:31 AM EDT Oxygen Saturation 100% 10/21/2024 9:31 AM EDT Inhaled Oxygen Concentration - - Weight 62.6 kg (138 lb) 10/21/2024 9:31 AM EDT Height 152.4 cm (5') 10/21/2024 9:31 AM EDT Body Mass Index 26.95 10/21/2024 9:31 AM EDT Plan of Treatment Upcoming Encounters Date Type Department Care Team (Late st Contact Info) Description 11/25/2024 10:30 AM EDT Office Visit [facility]ULT [facility] [address] [place] [address] Nikolai Sagastume DMD [address] [place] [address] 04/28/2025 1:00 PM EST Office Visit [facility] [address] [place] [address] Lauren, Alicia [address] [place] [address] Health Maintenance Due Date Last Done Comments Family Planning (PISQ) 07/24/1995 HPV Vaccines (1 - 3-dose series) 07/24/1995 COVID-19 Vaccine (3 - season) 2024 12/21/2020, 11/30/2020 Influenza Vaccine (#1) 2024 12/29/2015, 2009 Depression Screening 03/04/2025 03/04/2024, 03/04/20 Dental Oral Exam 04/24/2025 10/21/2024, 05/2021, 02/13/2018, Additional history exists Dental Prophylaxis 04/24/2025 10/21/2024, 0 05/16/2023, 10/11/2021, Additional history exists SDOH Screening 07/25/2025 07/25/2024 Disability Screening 08/05/2025 08/05/2024 Alcohol/Substance Use Screening 10/22/2025 10/22/2024 Dental X-Ray: Bitewings 10/22/2025 10/22/19, 05/16/2023, 03/08/2021, Additional history exists Tobacco Screening 10/25/2025 10/25/2024 Mammogram 10/29/2025 10/30/2023, /2 06/2022, 02/22/2021, Additional history exists Dental X-Ray: Full Mouth 10/23/2027 025, 03/08/2021, 07/31/2013, Additional history exists Cervical Cancer Screening 11/20/2028 [...] complete this topic HIV Screening Completed 05/29/2023, 05/0 06/2020, 03/21/2019 Hepatitis C Screening Completed 05/29/2023 [...] Procedure Name Priority Date/Time Associated Diagnosis Comments PERIODIC ORAL EVALUATION - ESTABLISHED PATIENT Routine 10/21/2024 10:00 AM EDT ORAL HYGIENE INSTRUCTIONS Routine 10/21/2024 10:00 AM EDT Dental calculus Gingival bleeding INTRAORAL - COMPLETE SERIES OF RADIOGRAPHIC IMAGES Routine 10/21/2024 10:00 AM EDT Dental calculus Gingival bleeding CASE PRESENTATION, DETAILED AND EXTENSIVE TREATMENT PLANNING Routine 10/21/2024 10:00 AM EDT Dental calculus Gingival bleeding PROPHYLAXIS - ADULT Routine 10/21/2024 1 0:00 AM EDT Dental calculus Gingival bleeding VITAMIN D,25-OH,TOTAL,IA Routine 10/07/2024 11:51 AM EDT Vitamin D deficiency VITAMIN B12/FOLATE, SERUM PANEL Routine 10/07/2024 11:51 AM EDT Anemia, unspecified type RETICULOCYTE COUNT Routine 10/07/2024 11 :51 AM EDT Anemia, unspecified type IRON AND TOTAL IRON BINDING CAPACITY Routine 10/07/2024 11:51 AM EDT Anemia, unspecified type FERRITIN Routine 10/07/2024 11:51 AM EDT Anemia, unspecified type CBC WITH AUTO DIFFERENTIAL Routine 10/07/2024 11:51 AM EDT Anemia, unspecified type LIPID PANEL WITH REFLEX TO DIRECT LDL Routine 10/07/2024 11:51 AM EDT Screening for lipid disorders COMPREHENSIVE METABOLIC PANEL Routine 10/07/2024 11:51 AM EDT Vitamin D deficiency HEMOGLOBIN A1C Routine 10/07/2024 11:51 AM EDT Screening for diabetes mellitus TSH W/REFLEX TO FT4 Routine 10/07/2024 1 1:51 AM EDT Anemia, unspecified type XR LUMBAR SPINE 2-3 VIEWS Routine 10/07/2024 11:42 AM EDT Chronic bilateral low back pain, unspecified whether sciatica present HM PAP/HPV Routine 11/21/2023 BI MAMMOGRAM SCREENING TOMOSYNTHESIS BILATERAL Routine 10/30/2023 3:00 PM EDT Breast cancer screening by mammogram HIV 1/2 ANTIGEN/ANTIBODY, FOURTH GENERATION W/RFL Routine 05/29/2023 3:35 PM EDT Routine screening for STI (sexually transmitted infection) HEPATITIS C AB W/REFL TO HCV RNA, QN, PCR Routine 05/29/2023 3:32 PM EDT Routine screening for STI (sexually transmitted infection) from Last 3 Months or Most Recently Relevant to Health Maintenance Results * (ABNORMAL) Vitamin D, 25-Hydroxy, Total, Immunoassay (10/07/2024 11:51 AM EDT) Pathologist [facility] Vitamin D 25-OH Total 15.5(L) >30 ng/mL [facility] Comment: Health Based Reference Values*< 20 ng/mL Ygrrzecsd76-92 ng/mL Insufficient> 30 ng/mL Sufficient*Trinity MCOGWAN. N Engl J Med. 2007;357:266-280There is no well-established upper level of normal vitamin Dlevels. Some laboratories use 50 ng/mL as an upper limit ofnormal. However, toxicity is patient-dependent and may occurat any level. Careful correlation with the patient'spresentation is necessary and, if there is concern forvitamin D toxicity, treatment should be consideredirrespective of the serum level.Care must be taken in interpreting Vitamin D results fromdifferent laboratories and methodologies. Published datademonstrated that results from patients undergoinghemodialysis may show a negative bias when tested withvarious automated 25-OH vitamin D assays when compared toLC-MS/MS.When testing samples from patients whose predominant form ofVitamin D is Vitamin D2, such as patients receiving VitaminD2 supplementation, results that are subtherapeutic shouldbe confirmed with another method such as LC-MS/MS. Blood Venous blood specimen / Unknown 10/07/2024 11:51 AM EDT 10/07/2024 1:17 PM EDT Khushboo Hernandez MD LAB BLOOD ORDERABLES Final Resul t Performing Organization Address [facility] Co de Phone Number [facility] [address] [place] [phone] * (ABNORMAL) Vitamin B12 (Cobalamin) and Folate Panel, Serum (10/07/2024 11:51 AM EDT) Vitamin B12 >2,000(H ) 200 - 900 pg/mL [facility] Comment:NORMAL 200-900 PG/ML INDETERMINATE 160-199 PG/ML DEFICIENT < 160 PG/ML Folate 14.3 > or = 4.0 ng/mL [facility] Comment:Reference Values:> o r = 4.0 ng/mL< 4.0 ng/mL suggests folate deficiency Methotrexate, aminopterin and folinic acid(leucovorin) are chemotherapeutic agents whose molecularstructures are similar to folate; therefore, the Architectfolate assay cannot be used for patients using these drugs. Blood 10/07/2024 11:5 1 AM EDT 10/07/2024 1:17 PM EDT Khushboo Hernandez MD LAB BLOOD ORDERABLES Final Resul t Performing Organization Address [facility] Co de Phone Number [facility] [address] [place] [phone] * TSH with Reflex to Free T4 (10/07/2024 11:51 AM EDT) TSH reflex Free T4 1.28 0.32 - 4.0 uIU/mL [facility] Blood 10/07/2024 11:5 1 AM EDT 10/07/2024 1:17 PM EDT Khushboo Hernandez MD LAB BLOOD ORDERABLES Final Resul t Performing Organization Address [facility] de Phone Number [facility] [address] [place] [phone] * (ABNORMAL) Lipid Panel with Reflex to Direct LDL (10/07/2024 11:51 AM EDT) Triglycerides 106 <150 mg/dL [facility] Comment:Desirable Triglyceri de: less than 150 mg/dLBorderline High Triglyceride 150-199 mg/dLHigh Triglyceride: 200-499 mg/dLVery High Triglyceride: greater than or equal to 5OO mg/dL Cholesterol 215(H) <200 mg/dL [facility] Comment:Desirable Cholestero l: less than 200 mg/dLBorderline High Cholesterol: 200-239 mg/dLHigh Cholesterol: greater than 239 mg/dL LDL Cholesterol Calculated 139(H) <100 mg/dL [facility] Comment:Desirable LDL: less than 100 mg/dLNear Optimal/Above Optimal LDL: 110- 129 mg/dLBorderline High LDL: 130-159 mg/dLHigh LDL: 160-189 mg/dLVery High LDL: greater than or equal to 190 mg/dL HDL Cholesterol 55 >40 mg/dL [facility] Comment:Desirable HDL: great er than 40 mg/dL Note: This HDL assay may give artificially low results in patients with liver disease. Blood 10/07/2024 11:5 1 AM EDT 10/07/2024 1:17 PM EDT us Khushboo Hernandez MD LAB BLOOD ORDERABLES Final Resul t Performing Organization Address [facility] Co de Phone Number [facility] [address] [place] [phone] * (ABNORMAL) CBC auto differential (10/07/2024 11:51 AM EDT) White Blood Count 6.9 4.8 - 10.8 X10*3/uL [facility] Red Blood Count 3.94(L) 4.20 - 5.50 X10*6/uL [facility] Hemoglobin 10.4(L) 12.0 - 16.0 g/dl [facility] Hematocrit 32.8(L) 37.0 - 47.0 % [facility] Mean Corpuscular Volume 83.2 80.0 - 98.0 fL [facility] Mean Corpuscular Hemoglobin 26.4(L) 27.0 - 33.0 pg [facility] Mean Corpuscular HGB Conc 31.7 31.0 - 35.0 g/dl [facility] Red Cell Distribution Width 16.6(H) 11.0 - 16.0 % [facility] Platelet Count 370 160 - 400 X10*3/uL [facility] Mean Platelet Volume 9.5 9.4 - 12.3 fL [facility] Neutrophils Percent Auto 64.2 45 - 73 % [facility] Imm Gran Pct Auto 0.1 0.0 - 0.4 % [facility] Lymphocytes Percent Auto 27.9 20 - 40 % [facility] Monocytes Percent Auto 5.4 2 - 11 % [facility] Eosinophils Percent Auto 2.0 0 - 4 % [facility] Basophils Percent Auto 0.4 0 - 2 % [facility] NRBC Pct Auto 0.0 0.0 - 0.2 /100WBC [facility] Neutrophils Absolute Auto 4.4 2.0 - 8.3 x10*3/uL [facility] Imm Gran Abs Auto 0.01 0.00 - 0.03 X10*3/uL [facility] Lymphocytes Absolute Auto 1.9 1.2 - 4.9 X10*3/uL [facility] Monocytes Absolute Auto 0.4 0.1 - 1.2 X10*3/uL [facility] Eosinophils Absolute Auto 0.1 0.0 - 0.4 X10*3/uL [facility] Basophils Absolute Auto 0.0 0.0 - 0.2 X10*3/uL [facility] NRBC Abs Auto 0.000 0.0 - 0.012 X10*3/uL [facility] Blood Venous blood specimen / Unknown 10/07/2024 11:51 AM EDT 10/07/2024 1:17 PM EDT Khushboo Hernandez MD LAB BLOOD ORDERABLES Final Resul t Performing Organization Address [facility] de Phone Number [facility] [address] [place] [phone] * Iron And Total Iron Binding Capacity (10/07/2024 11:51 AM EDT) Iron 68 30 - 160 mcg/dL [facility] Total Iron Binding Capacity 383 228 - 428 mcg/dL [facility] Percent Iron Saturation 18 15 - 50 % [facility] Unsaturated Iron Binding 315 ug/dL [facility] Blood Venous blood specimen / Unknown 10/07/2024 11:51 AM EDT 10/07/2024 1:17 PM EDT Khushboo Hernandez MD LAB BLOOD ORDERABLES Final Resul t Performing Organization Address [facility] de Phone Number [facility] [address] [place] [phone] * (ABNORMAL) Reticulocyte Count (10/07/2024 11:51 AM EDT) Reticulocytes Absolute 0.071 0.026 - 0.095 X10*6/uL [facility] Immature Retic Fraction 23.5(H) 3.0 - 15.9 % [facility] Retic HGB Equivalent 27.3(L) 30.0 - 35.0 pg [facility] Reticulocyte Percent 1.8 0.5 - 1.8 % [facility] Blood Venous blood specimen / Unknown 10/07/2024 11:51 AM EDT 10/07/2024 1:17 PM EDT Khushboo Hernandez MD LAB BLOOD ORDERABLES Final Resul t Performing Organization Address City/[facility] Co de Phone Number [facility] [address] [place] [phone] * Hemoglobin A1c (10/07/2024 11:51 AM EDT) Hemoglobin A1c 5.3 <6.0 % [facility] Comment:Hemoglobin A1C Refer ence Range Adults: 4.8 - 6.0 % Non diabetic: < 6.0 % Goal: < 7.0 %Additional Action Suggested: > 8.0 %Note: Hemoglobin A1c results are invalid for patients with abnormal amounts of HbF. Blood transfusions may impact the HbA1c concentration in the patient sample. Estimated Average Glucose 105 mg/dL [facility] Comment:eAG = Estimated ave rage glucose which is %A1C expressed asaverage glucose, using the formula of the [id number] Glucose study (ADAG), Diabetes Care, Vol.31,#8,Aug. 2007 Blood Venous blood specimen / Unknown 10/07/2024 11:51 AM EDT 10/07/2024 1:17 PM EDT us Khushboo Hernandez MD LAB BLOOD ORDERABLES Final Resul t Performing Organization Address City/[facility]/ZIP Co de Phone Number [facility] [address] [place] [phone] * (ABNORMAL) Ferritin (10/07/2024 11:51 AM EDT) Ferritin 5(L) 10 - 250 ng/mL [facility] Blood Venous blood specimen / Unknown 10/07/2024 11:51 AM EDT 10/07/2024 1:17 PM EDT us Khushboo Hernandez MD LAB BLOOD ORDERABLES Final Resul t Performing Organization Address [facility]/ZIP Co de Phone Number [facility] [address] [place] [phone] * (ABNORMAL) Comprehensive Metabolic Panel (10/07/2024 11:51 AM EDT) Sodium 140 135 - 145 mmol/L [facility] Potassium 4.0 3.3 - 5.1 mmol/L [facility] Chloride 110(H) 96 - 108 mmol/L [facility] Carbon Dioxide 24 22 - 29 mmol/L [facility] Anion Gap 10(L) 12 - 20 [facility] Urea Nitrogen (BUN) 11 9 - 16 mg/dL [facility] Creatinine, Serum 0.54 0.5 - 1.4 mg/dL [facility] Estimated Glomerular Filt Rate >60 [facility] Comment:Chronic Kidney Disea se: Estimated GFR < 60 mL/min/1.66r5Pjwrie Kidney Disease: Estimated GFR < 15 mL/min/1.73m2 Glucose 90 60 - 115 mg/dL [facility] Calcium 9.0 8.4 - 10.2 mg/dL [facility] Bilirubin, Total 0.3 0.0 - 1.0 mg/dL [facility] Aspartate Amino Transferase 21 5 - 31 U/L [facility] Alanine Aminotransferase 24 0 - 31 U/L [facility] Total Protein 7.0 6.5 - 8.0 g/dL [facility] Albumin Level 4.3 3.5 - 5.0 g/dL [facility] Alkaline Phosphatase 62 39 - 117 U/L [facility] Blood Venous blood specimen / Unknown 10/07/2024 11:51 AM EDT 10/07/2024 1:17 PM EDT us Khushboo Hernandez MD LAB BLOOD ORDERABLES Final Resul t Performing Organization Address City/[facility]/ZIP Co de Phone Number [facility] [address] [place] [phone] * XR Lumbar Spine 2-3 Views (10/07/2024 11:42 AM EDT) Anatomical Region Laterality Modality Spine, L-spine Radiographic Gracia ging 10/07/2024 11:4 2 AM EDT Narrative 10/07/2024 1:27 PM EDT [address] [address] XRay Report Signed Patient: Jennie Giang MR#: [id number] : 1980 Acct:[id number] Age/Sex: 44 / F ADM Date: 10/07/24 Loc: [facility] Attending Dr: Khushboo Hernandez MD Ordering Physician: Khushboo Hernandez MD Date of Service: 10/07/24 Procedure(s): XR lumbar spine 2-3V Accession Number(s): [id number] cc: Khushboo Hernandez MD EXAMINATION: XR LUMBOSACRAL SPINE CLINICAL INFORMATION: low back pain COMPARISON: August 09, 2021 TECHNIQUE: Three views of the lumbosacral spine. FINDINGS: There are 5 nonrib-bearing lumbar vertebral bodies. Vertebral body height and alignment is preserved. There is minimal evidence of disc space narrowing. There is sclerosis on the iliac side of the SI joints. XR/XR lumbar spine 2-3V IMPRESSION: Unremarkable lumbar spine Stable osteitis condensans ilii. Electronically signed by: Tomi Herndon MD 10/07/2024 01:24 PM EDT Dictated By: Tomi Herndon MD Signed By: <Electronically signed by Tomi Herndon MD in OV> 10/07/24 1324 DD/ 1142 TD/TT: 10/07/24 1200 Critical Care Physician Assistant: Procedure Note Donotuseinterpreter, Image - 10/07/[address] [address] XRay Report Signed Patient: Jennie Giang DMR#: [id number] : 1980Acct:[id number] Age/Sex: 44 / FADM Date: 10/07/24 Loc: HO.[facility] Attending Dr: Khushboo Hernandez MD Ordering Physician: Khushboo Hernandez MD Date of Service: 10/07/24 Procedure(s): XR lumbar spine 2-3V Accession Number(s): [id number] cc: Khushboo Hernandez MD EXAMINATION: XR LUMBOSACRAL SPINE CLINICAL INFORMATION: low back pain COMPARISON: August 09, 2021 TECHNIQUE: Three views of the lumbosacral spine. FINDINGS: There are 5 nonrib-bearing lumbar vertebral bodies. Vertebral body height and alignment is preserved. There is minimal evidence of disc space narrowing. There is sclerosis on the iliac side of the SI joints. XR/XR lumbar spine 2-3V IMPRESSION: Unremarkable lumbar spine Stable osteitis condensans ilii. Electronically signed by: Tomi Herndon MD 10/07/2024 01:24 PM EDT Dictated By: Tomi Herndon MD Signed By: <Electronically signed by Tomi Herndon MD in OV> 10/07/24 1324 DD/ 1142 TD/TT: 10/07/24 1200 Critical Care Physician Assistant: Khushboo Hernandez MD IMG XR PROCEDURES Final Result * HM PAP/HPV (11/21/2023) Pap Smear 1. NILM 1. NILM HPV Not Detected Undetected, Indeterminat e, Quantitative , Not Detected Historical Provider HEALTH MAINTENANCE Final Result * BI Mammogram Screening Tomosynthesis Bilateral (10/30/2023 3:00 PM EDT) Anatomical Region Laterality Modality Breast Bilateral Mammography 10/30/2023 3:00 PM EDT Narrative 11/24/2023 12:33 PM EDT [facility] [address] [place] [address] Mammography Report Signed Patient: Jennie Giang MR#: [id number] : 1980 Acct:[id number] Age/Sex: 43 / F ADM Date: 10/30/23 Loc: MAMMO Attending Dr: Khushboo Hernandez MD Ordering Physician: Khushboo Hernandez MD Results: 1Negative Date of Service: 10/30/23 Follow Up: 1 Year From Orig inal Mammogram Procedure(s): MM tomosynthesis screening BI Accession Number(s): [id number] cc: Khushboo Hernandez MD EXAMINATION: MM SCREENING [...] OV> 11/24/23 1230 DD/ 1500 TD/TT: 10/30/23 1513 Critical Care Physician Assistant: Procedure Note Donotuseinterpreter, Image - 11/24/2023 [facility] [address] [place] [address] Dr. Hardin, KAYLEE [address] Mammography Report Signed Patient: Jennie Giang [facility]#: [id number] : 1980Acct:[id number] Age/Sex: 43 / FADM Date: 10/30/23 Loc: HO.MAMMO Attending Dr: Khushboo Hernandez MD Ordering Physician: Khushboo Hernandez MDResults: 1Negative Date of Service: 10/30/23Follow Up: 1 Year From [facility] Mammogram Procedure(s): MM tomosynthesis screening BI Accession Number(s): [id number] cc: Khushboo Hernandez MD EXAMINATION: MM SCREENING [...] OV> 11/24/23 1230 DD/ 1500 TD/TT: 10/30/23 1513 Critical Care Physician Assistant: us Khushboo Hernandez MD IMG BI PROCEDURES Edited Result - Final * HIV-1/2 Antigen and Antibodies, Fourth Generation, with Reflexes (05/29/2023 3:35 PM EDT) HIV AB/AG Nonreactive Nonreactive [facility] Comment:HIV-1 p24 Ag and/or HIV-1/HIV-2 Ab not detected.A test result that is nonreactive does not exclude thepossibility of exposure to or infection with HIV-1 and/orHIV-2. Nonreactive results in this assay for individualswith prior exposure to HIV-1 and/or HIV-2 may be due toantigen and antibody levels that are below the limit ofdetection of this assay.The [employer] HIV Ag/Ab Combo assay result andsupplemental assay results should be interpreted inconjunction with the patient's clinical presentation,history and other laboratory results. If the results areinconsistent with clinical evidence, additional testing issuggested to confirm the result. Blood Venous blood specimen / Unknown 05/29/2023 3:35 PM EDT 05/29/2023 5:34 PM EDT us Khushboo Hernandez MD LAB BLOOD ORDERABLES Final Resul t Performing Organization Address [facility] Co de Phone Number [facility] [address] [place] [address] [phone] * Hepatitis C Antibody with Reflex to HCV, RNA, Quantitative, Real-Time PCR (05/29/2023 3:32 PM EDT) Hepatitis C Antibody Nonreactive Nonreactive [facility] Comment:Antibodies to HCV no t detected; does not exclude early acuteHCV infection. Blood Venous blood specimen / Unknown 05/29/2023 3:32 PM EDT 05/29/2023 5:34 PM EDT us Khushboo Hernandez MD LAB BLOOD ORDERABLES Final Resul t Performing Organization Address City/[facility] Co de Phone Number [facility] [address] [place] [phone] from Last 3 Months or Most Recently Relevant to Health Maintenance Insurance [employer] Member Subscriber Plan / Payer (Ef fective 2022-Present) Name:Heidi Giang Relation to Subscriber:Self Name:Heidi Giang Payer ID:Not on file Group ID:Not on file Type:Medicaid Address: [place] [id number] [place] ADULT DENTAL - [place] FULL (MEDICAID) [address] [place] [address] Care Teams Tool Filer Relationship Specialty Start Date End Date Khushboo Hernandez MD [address] [place] [address] PCP - General Family Medicine 05/09/22 Khushboo Hernandez MD [address] [place] [address] Family Medicine 03/15/22
== END 2024-11-11 15:26 | disposition home or self-care (01) ==
LOC: HO.MAMMO 15:25
PROVIDERS: PCP Family Medicine; Visit Provider Family Medicine
DX: Z12.31 Encounter for screening mammogram for malignant neoplasm of breast (principal)
CPT/HCPCS: 77063; 77067

== ENCOUNTER → 2024-11-11 15:30 | Outpatient (BNV) | payer MEDICAID, SELFPAY | PROVIDERS: PCP Family Medicine; Visit Provider Internal Medicine | DX: Z12.31 Encounter for screening mammogram for malignant neoplasm of breast (principal) | CPT/HCPCS: 77063; 77067 ==

== ENCOUNTER 2024-11-21 07:55 | Outpatient (REF) | payer MEDICAID, OTHER, SELFPAY ==
--- NOTE | ~2024-11-21 | US_ITS ---
EXAMINATION: MM DIAGNOSTIC DIGITAL BREAST TOMOSYNTHESIS, RIGHT Right limited ultrasound. CLINICAL INFORMATION: Call back from screening for asymmetry in the retroareolar region of the right breast MLO view. COMPARISON: Mammography: [facility] on PACS. TECHNIQUE: Digital breast tomosynthesis is performed in both the craniocaudal and mediolateral oblique views along with computer-aided detection (CAD). Synthesized 2D images are generated from the tomosynthesis. FINDINGS: The breasts are heterogeneously dense, which may obscure small masses (ACR BI-RADS breast composition Category c). Asymmetry retroareolar region of the right breast MLO view persists as a circumscribed oval mass. Multiple circumscribed oval masses are seen some of which have been demonstrated to be simple cysts on prior ultrasounds. No suspicious calcifications or other abnormal findings. Targeted color Doppler ultrasound demonstrates a simple to minimally complicated cyst at 8:00 6 cm from nipple measuring 20 x 12 x 18 mm which correlates with the retroareolar asymmetry and is benign. US/US breast RT limited mamm only IMPRESSION: Minimally complicated cyst on ultrasound. Benign. ASSESSMENT: BI-RADS BI-RADS 2 - Benign Findings RECOMMENDATION: 1 year F/U Results were provided to the patient at time of visit by the technologist. This patient's information was entered into a reminder system with a target due date for their next mammogram. Electronically signed by: Millei Dubois DO 11/21/2024 12:25 PM EDT
--- OUTSIDE RECORDS SUMMARY | 2024-11-21 07:58 | XMS_ITS | Encounter Summary ---
Author Organization [employer] Address [address] [facility] 7t [place] [address] Care Team Providers Care Medicaid Business Analyst Name Role Phone Khushboo Hernandez MD Unavailable Khushboo Hernandez MD Primary Care Provider [phone] Reason for Visit * Reason Comments Med Refill Encounter Details Date Type Department Care Team (Late st Contact Info) Description 11/28/[address] [facility] MEDICINE [address] [place], [place] [phone] Khushboo Hernandez MD [address] [place], [place] [phone] Chronic pain of right knee Social History [...] Description 11/25/2024 10:30 AM EDT Office Visit [facility] ADULT DENTAL [address] [place] [address] Nikolai Sagastume DMD [address] [place] [address] 01/20/2025 11:00 AM EST Office Visit [facility] MEDICINE [address] [place] [address] Khushboo Hernandez MD [address] [place] [address] 04/28/2025 1:00 PM EST Office Visit [facility] ADULT DENTAL [address] [place] [address] Alicia Aguilar [address] [place] [address] documented as of this encounter Visit Diagnoses Diagnosis Chronic pain of right knee documented in this encounter Additional Health Concerns Assessment Noted Time PHQ-9 Depression Total Score: 0 10/18/19 1:20 PM EDT documented as of this encounter Care Teams Medicaid Business Analyst Relationship Specialty Start Date End Date Khushboo Hernandez MD [address] [place] [address] PCP - General Family Medicine 05/09/22 Khushboo Hernandez MD [address] [place] [address] Family Medicine 03/15/22 documented as of this encounter
--- OUTSIDE RECORDS SUMMARY | 2024-11-21 07:58 | XMS_ITS | Encounter Summary ---
Author Organization [employer] Address [address] [facility] 7t [place] [address] Care Team Providers Care Lime Burner Name Role Phone Khushboo Hernandez MD Unavailable Khushboo Hernandez MD Primary Care Provider [phone] Encounter Details Date Type Department Care Team (Late st Contact Info) Description 08/16/2024 Orders Only [facility] MEDICINE [address] [place], [place] [phone] Khushboo Hernandez MD [address] [place], [place] [phone] Social History Tobacco Use Types Packs/Day Years [...] Description 11/25/2024 10:30 AM EDT Office Visit [facility] ADULT DENTAL [address] [place] [address] Nikolai Sagastume, DMD [address] [place] [address] 01/20/2025 11:00 AM EST Office Visit [facility] MEDICINE [address] [place] [address] Khushboo Hernandez MD [address] [place] [address] 04/28/2025 1:00 PM EST Office Visit [facility] ADULT DENTAL [address] [place] [address] Alicia Aguilar [address] [place] [address] documented as of this encounter Visit Diagnoses Not on filedocumented in this encounter Additional Health Concerns Assessment Noted Time PHQ-9 Depression Total Score: 0 03/04/20 24 2:59 PM EST documented as of this encounter Care Teams Lime Burner Relationship Specialty Start Date End Date Khushboo Hernandez MD [address] [place] [address] [place] [address] PCP - General Family Medicine 05/09/22 Khushboo Hernandez MD [address] [place] [address] Family Medicine 03/15/22 documented as of this encounter
--- OUTSIDE RECORDS SUMMARY | 2024-11-21 07:58 | XMS_ITS | Encounter Summary ---
Author Organization [employer] Address [address] [facility] [address] 7t [place] [address] Care Team Providers Care Universal Worker Assisted Living Name Role Phone Khushboo Hernandez MD Unavailable Khushboo Hernandez MD Primary Care Provider [phone] Encounter Details Date Type Department Care Team (Late st Contact Info) Description 05/31/2023 Orders Only [facility] MEDICINE [address] [place], [place] [phone] Khushboo Hernandez MD [address] [place], [place] [phone] Social History Tobacco Use Types Packs/Day Years [...] Description 11/25/2024 10:30 AM EDT Office Visit [facility] ADULT DENTAL [address] [place] [address] Nikolai Sagastume DMD [address] [place] [address] 01/20/2025 11:00 AM EST Office Visit [facility] MEDICINE [address] [place] [address] Khushboo Hernandez MD [address] [place] [address] 04/28/2025 1:00 PM EST Office Visit [facility] ADULT DENTAL [address] [place] [address] Alicia Aguilar [address] [place] [address] documented as of this encounter Visit Diagnoses Not on filedocumented in this encounter Additional Health Concerns Assessment Noted Time PHQ-9 Depression Total Score: 0 10/18/19 1:20 PM EDT documented as of this encounter Care Teams Universal Worker Assisted Living Relationship Specialty Start Date End Date Khushboo Hernandez MD [address] [place] [address] PCP - General Family Medicine 05/09/22 Khushboo Hernandez MD [address] [place] [address] Family Medicine 03/15/22 documented as of this encounter
--- OUTSIDE RECORDS SUMMARY | 2024-11-21 07:58 | XMS_ITS | Encounter Summary ---
Author Organization [employer] Address [address] [facility] 7t [place] [address] Care Team Providers Care Senior Product Manager Name Role Phone Khushboo Hernandez MD Unavailable Khushboo Hernandez MD Primary Care Provider [phone] Reason for Referral * Consultation (Routine) - Closed Specialty Diagnoses / Procedures Referred By Contac t Referred To Contact Obstetrics and Gynecology Diagnoses Increased endometrial stripe thickness Khushboo Hernandez MD [address] [place] [address] Phone: tel: fax: [address] Phone: tel: fax: Referral ID Status Reason Start Date Expiration Date V isits Requested Visits Authorized [id number] Closed Specialty Services Required 07/01/2023 06/30/2024 1 1 Encounter Details Date Type Department Care Team (Late st Contact Info) Description 07/01/2023 Orders Only [facility] MEDICINE [address] [place] [address] Khushboo Hernandez MD [address] [place], [place] [phone] Increased endometrial stripe thickness (Primary Dx) Social History Tobacco Use Types Packs/Day Years Used Date Smoking Tobacco: Never Passive Smoke Exposure: Never Smokeless Tobacco: Never Depression Answer Date Recorded Patient Health Questionnaire-9 Score 0 10/17/2022 Housing Stability Answer Date Recorded What is your housing situation today? I have trey sanitago 01/09/[address] you li [...] Description 11/25/2024 10:30 AM EDT Office Visit [facility] ADULT DENTAL [address] [place] [address] Nikolai Sagastume, YASMIN [address] [place] [address] 01/20/2025 11:00 AM EST Office Visit [facility] MEDICINE [address] [place] [address] Khushboo Hernandez MD [address] [place] [address] 04/28/2025 1:00 PM EST Office Visit [facility] ADULT DENTAL [address] [place] [address] Alicia Aguilar [address] [place] [address] Scheduled Referrals Name Type Priority Associated Diagnoses [...] documented as of this encounter Care Teams Senior Product Manager Relationship Specialty Start Date End Date Khushboo Hernandez MD [address] [place] [phone] PCP - General Family Medicine 05/09/22 Khushboo Hernandez MD [address] [place] [address] Family Medicine 03/15/22 documented as of this encounter
--- OUTSIDE RECORDS SUMMARY | 2024-11-21 07:58 | XMS_ITS | Encounter Summary ---
Author Organization [employer] Address [address] [facility] 7t [place] [address] Care Team Providers Care Cab Supervisor Name Role Phone Khushboo Hernandez MD Primary Care Provider [phone] Umberto Sears Primary Care Provider Khushboo Estevez MD Unavailable Graciela Bautista MD Primary Care Provide r Khushboo Hernandez MD Primary Care Provider [phone] Encounter Details Date Type Department Care Team (Latest Contact Info) Description 03/08/2021 Abstract [facility] CONVERSIONS Dental, Provider, DDS Social History [...] Description 11/25/2024 10:30 AM EDT Office Visit [facility] ADULT DENTAL [address] [place], [place] [phone] Nikolai Sagastume, YASMIN [address] [place], [place] [phone] 01/20/2025 11:00 AM EST Office Visit [facility] MEDICINE [address] [place] [address] Khushboo Hernandez MD [address] [place] [address] 04/28/2025 1:00 PM EST Office Visit [facility] ADULT DENTAL [address] [place] [address] Justin Aguilararis [address] [place] [address] documented as of this encounter Visit Diagnoses Not on filedocumented in this encounter Care Teams Cab Supervisor Relationship Specialty Start Date End Date [place] [address] PCP - General Family Medicine 03/06/18 03/14/22 [place] [address] PCP - General Family Medicine 03/15/22 05/04/22 [place] [address] PCP - General Internal Medicine 05/05/22 05/08/22 [place] [address] PCP - General Family Medicine 05/09/22 [place] [address] Family Medicine 03/15/22 documented as of this encounter
--- OUTSIDE RECORDS SUMMARY | 2024-11-21 07:58 | XMS_ITS | Clinical Summary ---
Author Organization [employer] Address [address] [facility] [address] [place] [address] Care Team Providers Care Gerontology Aide Name Role Phone Khushboo Hernandez MD Unavailable Khushboo Hernandez MD Primary Care Provider [phone] Allergies No known active allergies Medications copper [...] benign Recommended NSAIDs prn Upcoming appointment with ASSET COORDINATOR Assessment & Plan (10/09/2023 3:46 PM EDT): Left side US in June showed left ovarian cyst, benign Recommended NSAIDs prn Upcoming appointment with ASSET COORDINATOR Left elbow pain 10/09/2023 Assessment & Plan [...] Small to moderate effusion. -last seen by [facility] on 06/06/22, given reassurance and [...] Small to moderate effusion. -[facility] seen [facility] on 06/06/22, given reassurance and [...] chondroplasty on 11/17/[address] Shultz [facility] Assessment & Plan (10/10/2023 8:34 AM EDT): -s/p partial lateral meniscectomy and lateral compartment chondroplasty on 11/17/[address] Shultz [facility] Assessment & Plan (10/21/2022 11:59 AM EDT): -s/p partial lateral meniscectomy and lateral compartment chondroplasty on 11/17/[address] Shultz [facility] Assessment & Plan (04/07/2022 6:16 AM EST): -s/p partial lateral meniscectomy and lateral compartment chondroplasty on 11/17/[address] Shultz [facility] Chronic pain of right knee 03/24/2021 Assessment & Plan (08/05/2024 8:58 AM EDT): -MRI on 08/16/21 showed complex displaced lateral meniscus tear. Minimal arthrosis in med / lateral compartment. -11/17/21 right knee partial lateral meniscectomy and lateral compartment chondroplasty -03/30/22 MRI findings postsurgical changes vs. Recurrent tear of lateral meniscus tear. -last seen by [facility] in June 2022 -continue meloxicam, diclofenac [...] (08/16/2024 5:23 AM EDT): -Previously followed by [facility] ASSET COORDINATOR -Hx ASCUS with positive high-risk HPV. s/p colposcopy in September 2016. -PAP 05/02/17 LSIL HPV neg, Colposcopy 05/15/17 was NILM. -03/15/18 ASCUS with negative high-risk HPV -05/14/19 NILM with negative high-risk HPV -05/11/21 NILM with negative high-risk HPV Assessment & Plan (10/21/2022 12:07 PM EDT): -Previously followed by [facility] ASSET COORDINATOR -Hx ASCUS with positive high-risk HPV. s/p colposcopy in September 2016. -PAP 05/02/17 LSIL HPV neg, Colposcopy 05/15/17 was NILM. -03/15/18 ASCUS with negative high-risk HPV -05/14/19 NILM with negative high-risk HPV -05/11/21 NILM with negative high-risk HPV Resolved Problems Problem Noted Date Diagnosed Date Resolved Date IUD (intrauterine device) in place 10/21/2022 10/09/2023 Encounters Date Type Department Care Team Description 11/13/2024 Telephone [facility] MEDICINE [address] [place] [phone] Khushboo Hernandez MD january11/11/2024 Orders Only [facility] MED[facility] [address] [place] [phone] Khushboo Hernandez MD 10/21/2024 10:00 AM EDT Office Visit [facility] ADULT DENTAL [address] [place] [phone] LaurenJustinAlicia Dental calculus (Primary Dx); Gingival bleeding 10/21/2024 9:30 AM EDT Office Visit [facility] MEDICINE [address] [place] [phone] Khushboo Hernandez MD Elevated BP without diagnosis of hypertension (Primary Dx); Vitamin D deficiency; Anemia, unspecified type; Left elbow pain; Numbness and tingling in both hands; Chronic low back pain, unspecified back pain laterality, unspecified whether sciatica present; Lumbar back pain with radiculopathy affecting left lower extremity 10/21/2024 Travel 10/18/2024 Telephone [facility] MEDICINE [address] [place] [address] Khushboo Hernandez MD from Last 3 Months Immunizations Immunization [...] Description 11/25/2024 10:30 AM EDT Office Visit [facility] ADULT DENTAL [address] [place] [address] Nikolai Sagastume DMD [address] [place] [address] 01/20/2025 11:00 AM EST Office Visit [facility] MEDICINE [address] [place] [phone] Khushboo Hernandez MD [address] [place] [address] 04/28/2025 1:00 PM EST Office Visit [facility] ADULT DENTAL [address] [place] [address] Alicia Aguilar [address] [place] [address] Health Maintenance Due Date Last Done Comments Family Planning (PISQ) 07/24/1995 HPV Vaccines (1 - 3-dose series) 07/24/1995 COVID-19 Vaccine (3 - 2024- season) 2024 12/21/2020, 11/30/2020 Influenza Vaccine (#1) 2024 12/29/2015, 2009 Depression Screening 03/04/2025 03/04/2024, 03/04/20 Dental Oral Exam 04/24/2025 10/21/2024, 05/2021, 02/13/2018, Additional history exists Dental Prophylaxis 04/24/2025 10/21/2024, 0 05/16/2023, 10/11/2021, Additional history exists SDOH Screening 07/25/2025 07/25/2024 Disability Screening 08/05/2025 08/05/2024 Alcohol/Substance Use Screening 10/22/2025 10/22/2024 Dental X-Ray: Bitewings 10/22/2025 10/22/19 25, 05/16/2023, 03/08/2021, Additional history exists Tobacco Screening 10/25/2025 10/25/2024 Mammogram 11/11/2026 11/11/2024, 10/05, 06/27/2022, Additional history exists Dental X-Ray: Full Mouth [...] Procedure Name Priority Date/Time Associated Diagnosis Comments BI MAMMOGRAM SCREENING TOMOSYNTHESIS BILATERAL Routine 11/11/2024 3:35 PM EDT PERIODIC ORAL EVALUATION - ESTABLISHED PATIENT Routine [...] whether sciatica present HM PAP/HPV Routine 11/21/2023 HIV 1/2 ANTIGEN/ANTIBODY, FOURTH GENERATION W/RFL Routine 05/29/2023 3:35 PM EDT Routine screening for STI (sexually transmitted infection) HEPATITIS C AB W/REFL TO HCV RNA, QN, PCR Routine 05/29/2023 3:32 PM EDT Routine screening for STI (sexually transmitted infection) from Last 3 Months or Most Recently Relevant to Health Maintenance Results * BI Mammogram Screening Tomosynthesis Bilateral (11/11/2024 3:35 PM EDT) Anatomical Region Laterality Modality Breast Bilateral Mammography 11/11/2024 3:35 PM EDT Narrative 11/15/2024 5:24 PM EDT [facility] [address] [place], [place] [address] Mammography Report Signed Patient: Jennie Giang MR#: [id number] : 1980 Acct:[id number] Age/Sex: 44 / F ADM Date: 11/11/24 Loc: HO.MAMMO Attending Dr: Khushboo Hernandez MD Ordering Physician: Khushboo Hernandez MD Results: 0Incomple te: Needs Additional Imaging Evaluation Date of Service: 11/11/24 Follow Up: Additional Imagi ng Procedure(s): MM tomosynthesis screening BI Accession Number(s): [id number] cc: Khushboo Hernandez MD Reason For Exam: SCREENING EXAMINATION: MM SCREENING DIGITAL BREAST TOMOSYNTHESIS, BILATERAL CLINICAL INFORMATION: Screening. Asymptomatic. COMPARISON: Mammography: Comparison is made with available priors TECHNIQUE: Digital breast mammography with tomosynthesis is performed in both the craniocaudal and mediolateral oblique views along with computer-aided detection (CAD). FINDINGS: The breasts are heterogeneously dense, which may obscure small masses (ACR BI-RADS breast composition Category c). Right: Asymmetry retroareolar region middle to posterior depth on MLO view. No suspicious calcifications or other abnormal findings. Left: There are no significant masses, abnormal calcifications, or other abnormalities. MM/MM tomosynthesis screening BI IMPRESSION: Additional imaging is recommended ASSESSMENT: BI-RADS BI-RADS 0 - Incomplete: Needs additional Imaging. RECOMMENDATION: 1. Additional views of the right breast. 2. Targeted ultrasound if warranted after review of the additional views. 3. Radiology department staff will contact the patient for additional imaging. Additional Imaging required This examination should not preclude the clinical evaluation of a suspicious palpable abnormality. This patient's information was entered into a reminder system with a target due date for their next mammogram. Electronically signed by: Millie Dubois DO 11/15/2024 05:21 PM EDT Dictated By: Millie Dubois DO Signed By: <Electronically signed by Millie Dubois DO in OV> 11/15/24 1721 DD/ 1535 TD/TT: 11/11/24 1535 Classification Inspector: Procedure Note Donotuseinterpreter, Image - [facility]/15/2024 [facility] [address] [place] [address] Mammography Report Signed Patient: Jennie Giang DMR#: [id number] : 1980Acct:[id number] Age/Sex: 44 / FADM Date: 11/11/24 Loc: HO.MAMMO Attending Dr: Khushboo Hernandez MD Ordering Physician: Khushboo Hernandez MDResults: 0Incomple te: Needs Additional Imaging Evaluation Date of Service: 11/11/24Follow Up: Additional Imagi ng Procedure(s): MM tomosynthesis screening BI Accession Number(s): [id number] cc: Khushboo Hernandez MD Reason For Exam: SCREENING EXAMINATION: MM SCREENING DIGITAL BREAST TOMOSYNTHESIS, BILATERAL CLINICAL INFORMATION: Screening. Asymptomatic. COMPARISON: Mammography: Comparison is made with available priors TECHNIQUE: Digital breast mammography with tomosynthesis is performed in both the craniocaudal and mediolateral oblique views along with computer-aided detection (CAD). FINDINGS: The breasts are heterogeneously dense, which may obscure small masses (ACR BI-RADS breast composition Category c). Right: Asymmetry retroareolar region middle to posterior depth on MLO view. No suspicious calcifications or other abnormal findings. Left: There are no significant masses, abnormal calcifications, or other abnormalities. MM/MM tomosynthesis screening BI IMPRESSION: Additional imaging is recommended ASSESSMENT: BI-RADS BI-RADS 0 - Incomplete: Needs additional Imaging. RECOMMENDATION: 1. Additional views of the right breast. 2. Targeted ultrasound if warranted after review of the additional views. 3. Radiology department staff will contact the patient for additional imaging. Additional Imaging required This examination should not preclude the clinical evaluation of a suspicious palpable abnormality. This patient's information was entered into a reminder system with a target due date for their next mammogram. Electronically signed by: Millie Dubois DO 11/15/2024 05:21 PM EDT Dictated By: Millie Dubois DO Signed By: <Electronically signed by Millie Dubois DO in OV> 11/15/24 1721 DD/ 1535 TD/TT: 11/11/24 1535 Classification Inspector: us Khushboo Hernandez MD IMG BI PROCEDURES Final Result * (ABNORMAL) Vitamin D, 25-Hydroxy, Total, Immunoassay (10/07/2024 11:51 AM EDT) Vitamin D 25-OH Total 15.5(L) >30 ng/mL [facility] Comment: Health Based Reference Values*< 20 ng/mL Brzmzyvyz25-57 ng/mL Insufficient> 30 ng/mL Sufficient*Trinity MCGOWAN. N Engl J Med. 2007;357:266-280There is no [...] AM EDT 10/07/2024 1:17 PM EDT Khushboo Hernnadez MD LAB BLOOD ORDERABLES Final Resul t [facility] [address] [place] [phone] * (ABNORMAL) Vitamin B12 (Cobalamin) and Folate Panel, Serum (10/07/2024 11:51 AM EDT) Vitamin B12 >2,000(H ) 200 - 900 pg/mL [facility] Comment:NORMAL 200-900 PG/ML INDETERMINATE 160-199 PG/ML DEFICIENT < 160 PG/ML Folate 14.3 > or = 4.0 ng/mL [facility] Comment:Reference Values:> o r = 4.0 ng/mL< 4.0 ng/mL suggests folate deficiency Methotrexate, aminopterin and folinic acid(leucovorin) are chemotherapeutic agents whose molecularstructures are similar to folate; therefore, the Architectfolate assay cannot be used for patients using these drugs. Blood 10/07/2024 11:5 1 AM EDT 10/07/2024 1:17 PM EDT Khushboo Hernandez MD LAB BLOOD ORDERABLES Final Resul t Performing Organization Address [facility] Co de Phone Number [facility] [address] [place] [address] [phone] * TSH with Reflex to Free T4 (10/07/2024 11:51 AM EDT) TSH reflex Free T4 1.28 0.32 - 4.0 uIU/mL [facility] Blood 10/07/2024 11:5 1 AM EDT 10/07/2024 1:17 PM EDT Khushboo Hernandez MD LAB BLOOD ORDERABLES Final Resul t Performing Organization Address [facility] Co de Phone Number [facility] [address] [place] [phone] * (ABNORMAL) Lipid Panel with Reflex to Direct LDL (10/07/2024 11:51 AM EDT) Triglycerides 106 <150 mg/dL [facility] Comment:Desirable Triglyceri de: less than 150 mg/dLBorderline High Triglyceride 150-199 mg/dLHigh Triglyceride: 200-499 mg/dLVery High Triglyceride: greater than or equal to 5OO mg/dL Cholesterol 215(H) <200 mg/dL [facility] Comment:Desirable Cholestero l: less than 200 mg/dLBorderline High Cholesterol: 200-239 mg/dLHigh Cholesterol: greater than 239 mg/dL LDL Cholesterol Calculated 139(H) <100 mg/dL [facility] Comment:Desirable LDL: less than 100 mg/dLNear Optimal/Above Optimal LDL: 110- 129 mg/dLBorderline High LDL: 130-159 mg/dLHigh LDL: 160-189 mg/dLVery High LDL: greater than or equal to 190 mg/dL HDL Cholesterol 55 >40 mg/dL [facility] Comment:Desirable HDL: great er than 40 mg/dL Note: This HDL assay may give artificially low results in patients with liver disease. Blood 10/07/2024 11:5 1 AM EDT 10/07/2024 1:17 PM EDT us Khushboo Hernandez MD LAB BLOOD ORDERABLES Final Resul t [facility] [address] [place] [phone] * (ABNORMAL) CBC auto differential (10/07/2024 11:51 AM EDT) White Blood Count 6.9 4.8 - 10.8 X10*3/uL [facility] Red Blood Count 3.94(L) 4.20 - 5.50 X10*6/uL [facility] Hemoglobin 10.4(L) 12.0 - 16.0 g/dl [facility] Hematocrit 32.8(L) 37.0 - 47.0 % [facility] Mean Corpuscular Volume 83.2 80.0 - 98.0 fL [facility] Mean Corpuscular Hemoglobin 26.4(L) 27.0 - 33.0 pg [facility] Mean Corpuscular HGB Conc 31.7 31.0 - 35.0 g/dl [facility] Red Cell Distribution Width 16.6(H) 11.0 - 16.0 % [facility] Platelet Count 370 160 - 400 X10*3/uL [facility] Mean Platelet Volume 9.5 9.4 - 12.3 fL [facility] Neutrophils Percent Auto 64.2 45 - 73 % [facility] Imm Gran Pct Auto 0.1 0.0 - 0.4 % [facility] Lymphocytes Percent Auto 27.9 20 - 40 % [facility] Monocytes Percent Auto 5.4 2 - 11 % [facility] Eosinophils Percent Auto 2.0 0 - 4 % [facility] Basophils Percent Auto 0.4 0 - 2 % [facility] NRBC Pct Auto 0.0 0.0 - 0.2 /100WBC [facility] Neutrophils Absolute Auto 4.4 2.0 - 8.3 x10*3/uL [facility] Imm Gran Abs Auto 0.01 0.00 - 0.03 X10*3/uL [facility] Lymphocytes Absolute Auto 1.9 1.2 - 4.9 X10*3/uL [facility] Monocytes Absolute Auto 0.4 0.1 - 1.2 X10*3/uL [facility] Eosinophils Absolute Auto 0.1 0.0 - 0.4 X10*3/uL [facility] Basophils Absolute Auto 0.0 0.0 - 0.2 X10*3/uL [facility] NRBC Abs Auto 0.000 0.0 - 0.012 X10*3/uL [facility] Blood Venous blood specimen / Unknown 10/07/2024 11:51 AM EDT 10/07/2024 1:17 PM EDT us Khushboo Hernandez MD LAB BLOOD ORDERABLES Final Resul t [facility] [address] [place] [phone] * Iron And Total Iron Binding Capacity (10/07/2024 11:51 AM EDT) Iron 68 30 - 160 mcg/dL [facility] Total Iron Binding Capacity 383 228 - 428 mcg/dL [facility] Percent Iron Saturation 18 15 - 50 % [facility] Unsaturated Iron Binding 315 ug/dL [facility] Blood Venous blood specimen / Unknown 10/07/2024 11:51 AM EDT 10/07/2024 1:17 PM EDT Khushboo Hernandez MD LAB BLOOD ORDERABLES Final Resul t Performing Organization Address [facility] de Phone Number [facility] [address] [place] [phone] * (ABNORMAL) Reticulocyte Count (10/07/2024 11:51 AM EDT) Reticulocytes Absolute 0.071 0.026 - 0.095 X10*6/uL [facility] Immature Retic Fraction 23.5(H) 3.0 - 15.9 % [facility] Retic HGB Equivalent 27.3(L) 30.0 - 35.0 pg [facility] Reticulocyte Percent 1.8 0.5 - 1.8 % [facility] Blood Venous blood specimen / Unknown 10/07/2024 11:51 AM EDT 10/07/2024 1:17 PM EDT Khushboo Hernandez MD LAB BLOOD ORDERABLES Final Resul t Performing Organization Address [facility] de Phone Number [facility] [address] [place] [phone] * Hemoglobin A1c (10/07/2024 11:51 AM EDT) Hemoglobin A1c 5.3 <6.0 % [facility] Comment:Hemoglobin A1C Refer ence Range Adults: 4.8 - 6.0 % Non diabetic: < 6.0 % Goal: < 7.0 %Additional Action Suggested: > 8.0 %Note: Hemoglobin A1c results are invalid for patients with abnormal amounts of HbF. Blood transfusions may impact the HbA1c concentration in the patient sample. Estimated Average Glucose 105 mg/dL [facility] Comment:eAG = Estimated ave rage glucose which is %A1C expressed asaverage glucose, using the formula of the O2I-VbenlvzLddleky Glucose study (ADAG), Diabetes Care, Vol.31,#8,2007 Blood Venous blood specimen / Unknown 10/07/2024 11:51 AM EDT 10/07/2024 1:17 PM EDT Khushboo Hernandez MD LAB BLOOD ORDERABLES Final Resul t Performing Organization Address City/[facility] Co de Phone Number [facility] [address] [place] [phone] * (ABNORMAL) Ferritin (10/07/2024 11:51 AM EDT) Ferritin 5(L) 10 - 250 ng/mL [facility] Blood Venous blood specimen / Unknown 10/07/2024 11:51 AM EDT 10/07/2024 1:17 PM EDT us Khushboo Hernandez MD LAB BLOOD ORDERABLES Final Resul t Performing Organization Address [facility] Co de Phone Number [facility] [address] [place] [phone] * (ABNORMAL) Comprehensive Metabolic Panel (10/07/2024 11:51 AM EDT) Sodium 140 135 - 145 mmol/L [facility] Potassium 4.0 3.3 - 5.1 mmol/L [facility] Chloride 110(H) 96 - 108 mmol/L [facility] Carbon Dioxide 24 22 - 29 mmol/L [facility] Anion Gap 10(L) 12 - 20 [facility] Urea Nitrogen (BUN) 11 9 - 16 mg/dL [facility] Creatinine, Serum 0.54 0.5 - 1.4 mg/dL [facility] Estimated Glomerular Filt Rate >60 [facility] Comment:Chronic Kidney Disea se: Estimated GFR < 60 mL/min/1.86k1Nnvapw Kidney Disease: Estimated GFR < 15 mL/min/1.73m2 Glucose 90 60 - 115 mg/dL [facility] Calcium 9.0 8.4 - 10.2 mg/dL [facility] Bilirubin, Total 0.3 0.0 - 1.0 mg/dL [facility] Aspartate Amino Transferase 21 5 - 31 U/L [facility] Alanine Aminotransferase 24 0 - 31 U/L [facility] Total Protein 7.0 6.5 - 8.0 g/dL [facility] Albumin Level 4.3 3.5 - 5.0 g/dL [facility] Alkaline Phosphatase 62 39 - 117 U/L [facility] Blood Venous blood specimen / Unknown 10/07/2024 11:51 AM EDT 10/07/2024 1:17 PM EDT Khushboo Hernandez MD LAB BLOOD ORDERABLES Final Resul t Performing Organization Address City/State/[facility] Co de Phone Number [facility] [address] [place] [phone] * XR Lumbar Spine 2-3 Views (10/07/2024 11:42 AM EDT) Anatomical Region Laterality Modality Spine, L-spine Radiographic Gracia ging 10/07/2024 11:4 2 AM EDT Narrative 10/07/2024 1:27 PM EDT [address] [address] XRay Report Signed Patient: Jennie Giang MR#: [id number] : 1980 Acct:[id number] Age/Sex: 44 / F ADM Date: 10/07/24 Loc: HO.HHCL Attending Dr: Khushboo Hernandez MD Ordering Physician: Khushboo Hernandez MD Date of Service: 10/07/24 Procedure(s): XR lumbar spine 2-3V Accession Number(s): [id number] cc: Khushboo Hernandez MD EXAMINATION: XR LUMBOSACRAL [...] Tomi Herndon MD 10/07/2024 01:24 PM EDT RP Dictated By: Tomi Herndon MD Signed By: <Electronically signed by Tomi Herndon MD in OV> 10/07/24 1324 DD/ 1142 TD/TT: 10/07/24 1200 Classification Inspector: Procedure Note Donotuseinterpreter, Image - 10/07/2024 [place] [address] XRay Report Signed Patient: Jennie Giang DMR#: [id number] : 1980Acct:[id number] Age/Sex: 44 / FADM Date: 10/07/24 Loc: HO.[facility] Attending Dr: Khushboo Hernandez MD Ordering Physician: Khushboo Hernandez MD Date of Service: 10/07/24 Procedure(s): XR lumbar spine 2-3V Accession Number(s): [id number] cc: Khushboo Hernandez MD EXAMINATION: XR LUMBOSACRAL [...] Tomi Herndon MD 10/07/2024 01:24 PM EDT RP Dictated By: Tomi Herndon MD Signed By: <Electronically signed by Tomi Herndon MD in OV> 10/07/24 1324 DD/ 1142 TD/TT: 10/07/24 1200 Classification Inspector: us Khushboo Sakurai MD IMG XR PROCEDURES Final Result * HM PAP/HPV (11/21/2023) Pap Smear 1. NILM 1. NILM HPV Not Detected Undetected, Indeterminat e, Quantitative , Not Detected Mel Provider HEALTH MAINTENANCE Final Result * HIV-1/2 Antigen and Antibodies, Fourth Generation, with Reflexes (05/29/2023 3:35 PM EDT) HIV AB/AG Nonreactive Nonreactive [facility] Comment:HIV-1 p24 Ag and/or HIV-1/HIV-2 Ab not detected.A test result that is nonreactive does not exclude thepossibility of exposure to or infection with HIV-1 and/orHIV-2. Nonreactive results in this assay for individualswith prior exposure to HIV-1 and/or HIV-2 may be due toantigen and antibody levels that are below the limit ofdetection of this assay.The [employer] HIV Ag/Ab Combo assay result andsupplemental assay results should be interpreted inconjunction with the patient's clinical presentation,history and other laboratory results. If the results areinconsistent with clinical evidence, additional testing issuggested to confirm the result. Blood Venous blood specimen / Unknown 05/29/2023 3:35 PM EDT 05/29/2023 5:34 PM EDT Khushboo Hernandez MD LAB BLOOD ORDERABLES Final Resul t [facility] [address] [place] [phone] * Hepatitis C Antibody with Reflex to HCV, RNA, Quantitative, Real-Time PCR (05/29/2023 3:32 PM EDT) Pathologist [facility] Hepatitis C Antibody Nonreactive Nonreactive [facility] Comment:Antibodies to HCV no t detected; does not exclude early acuteHCV infection. Blood Venous blood specimen / Unknown 05/29/2023 3:32 PM EDT 05/29/2023 5:34 PM EDT us Khushboo Hernandez MD LAB BLOOD ORDERABLES Final Resul t [facility] [address] [place] [phone] from Last 3 Months or Most Recently Relevant to Health Maintenance Insurance [employer] FULL [employer] LIMITED HSN FULL DENTAL-[facility] MEDICAID LIMITED ADULT DENTAL - HSN FULL (MEDICAID) Care Teams Gerontology Aide Relationship Specialty Start Date End Date Khushboo Hernandez MD [address] [place] [address] PCP - General Family Medicine 05/09/22 Khushboo Hernandez MD [address] [place] [address] Family Medicine 03/15/22
== END 2024-11-21 07:56 | disposition home or self-care (01) ==
LOC: HO.MAMMO 07:55
PROVIDERS: Visit Provider Family Medicine
DX: N64.89 Other specified disorders of breast (principal)
CPT/HCPCS: 76642; 77061; 77065

== ENCOUNTER 2024-11-21 09:02 | Emergency (ER) | payer MEDICAID, OTHER, SELFPAY ==
--- NOTE | ~2024-11-21 | XR_ITS ---
EXAMINATION: XR LUMBOSACRAL SPINE CLINICAL INFORMATION: pain COMPARISON: 10/07/2024, 08/09/2021. TECHNIQUE: Three views of the lumbosacral spine. FINDINGS: No significant scoliosis. Normal lordosis. No fracture, compression deformity, or suspicious bone lesion. There is normal alignment without subluxation. Very mild multilevel degenerative disc disease. Facets normally aligned. Minimal facet degeneration L4-S1. Sclerosis abutting the the bilateral SI joints noted, indeterminate etiology. No soft tissue abnormalities. XR/XR lumbar spine 2-3V IMPRESSION: 1. No acute findings of the lumbar spine. Very mild lumbar spondylosis. 2. Sclerosis abutting the SI joints bilaterally, predominantly iliac aspect of both joints, suggesting osteitis condensans ilii. Electronically signed by: Rei Blank MD 11/21/2024 09:45 AM EDT
--- NOTE | 2024-11-21 09:07 | ED.BACK ---
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 She notes 3 weeks ago she started with bilateral lower back pain that does respond to motrin but still is present. She has not seen her PCP for this. Her PCP in the past tried to order MRI but insurance declined. She has pain with moving. It radiates down the L buttock and sometimes up the back. NO rash, no numbness, no weakness, no saddle anesthesia. She is no on thinner and no IVDA. Pain gets worse as the day goes on. MD elicited complaint: back pain Pertinent past history: prior back pain Onset (ago): week(s) (3) Timing: intermittent Severity: moderate Similar Symptoms Previously: Yes Quality: aching Location: lumbar spine Radiation: buttocks and other Exacerbating factors: movement Relieving factors: none Context: unknown Associated symptoms: denies other symptoms Treatments prior to arrival: NSAIDS Work related injury: No Related Data Previous Rx's ?Medication ?Instructions ?Recorded cyclobenzaprine 10 mg tablet 10 mg PO TID PRN muscle spasm #20 11/21/24 tabs lidocaine 5 % topical patch 1 patch topical DAILY #30 ea 11/21/24 prednisone 20 mg tablet 40 mg (2 x 20 mg) PO DAILY 5 days 11/21/24 #10 tabs Allergies Allergy/AdvReac Type Severity Reaction Status Date / Time No Known Allergies (NO KNOWN Allergy Unknown NONE Verified 11/21/24 09:13 ALLERGIES) Review of Systems Review of Systems: Constitutional : No Weight loss, No Fever, No Chills, ENT/Mouth : No Hearing loss, No Ear Pain, No Nasal Congestion, No Sinus Pain, No Hoarseness, No sore throat, No Rhinorrhea, No Swallowing Difficulty Cardiovascular : No Chest Pain, No SOB Respiratory : No Cough, No Dyspnea Gastrointestinal : No Nausea, No Vomiting, No Diarrhea, No abdominal Pain, No Hematochezia, No Melena Genitourinary : No Dysuria, No Urinary Frequency, No Hematuria, No Urinary Incontinence, Musculoskeletal : positive back pain Skin : No Skin Lesions, No rash Neuro : No Weakness, No Numbness, No Paresthesias, no loss of bowel or bladder incontinence, no saddle anesthesia Yes all other systems are reviewed and are negative [facility] Past Medical History Attestation statement: The following information was validated with the patient. Source: old records reviewed Medical History Anemia Social History Social History (Updated 11/21/24 @ 09:26 by Elisa Frye DO) Patient Tobacco Use Status: Never used Tobacco Smoked in Last 30 Days: No Use of substances other than those prescribed or required for medical reasons: No Do you have a plan to hurt others: No Plan Patient : No Physical Exam Vital Signs: Vital Signs: Last Vital Signs Temp 98.2 F 11/21/24 09:17 Pulse 78 11/21/24 09:17 Resp 16 11/21/24 09:17 BP 128/81 11/21/24 09:17 Pulse Ox 100 11/21/24 09:17 O2 Del Method Room Air 11/21/24 09:17 BMI result Body Mass Index 30.7 Appearance: Alert. Oriented X3. No acute distress. Eyes: Pupils equal, round and reactive to light. ENT: Pharynx normal. Neck: Normal inspection. Neck supple. CVS: Normal heart rate and rhythm. Pulses normal. Respiratory: No respiratory distress. Breath sounds normal. Abdomen: Soft and nontender. Back: ttp along bilateral lumbar paraspinal muscles Skin: Skin warm and dry. Normal skin color. Extremities: No lower extremity edema. Neuro: Oriented X 3. No motor deficit. No sensory deficit. SILT inner thigh 2+ DTR patella and achilles, L5 5/5 bilaterally Medical Decision Making Medical Decision Making [facility] Narrative: 44 yo female with PMH of Fe deficiency anemia and prior back pain now here with c/o worsening low back pain x 3 weeks but no GI or symptoms, no signs of cauda equina - will obtain UA, lumbar spine have her follow up with PCP for PT if negative, start on flexeril, lidocaine patches, prednisone. Differential Diagnosis Differential Diagnoses: The differential diagnosis associated with the presentation includes sciatica, lumbar strain, acute on chronic back pain Admission/Observation Consideration of admission/observation: Escalation of care including admission/observation considered able to walk no cauda equina symptoms stable for DC Lab Data [facility] Lab Attestation statement: I reviewed the patient's lab results. Independent Interpretation I performed an independent interpretation of an: Plain X-Ray Radiology Impression Discussion of test interpretation with radiology: I have reviewed the radiologist's reading. External Record Review External record reviewed: Outpatient record Prescription Management I considered prescription management with: Pain Medication and Other Discharge Plan Discharge Clinical Impression: Acute lumbar back pain Qualifiers: Back pain laterality: bilateral Sciatica presence: with sciatica Sciatica laterality: sciatica of left side Qualified Code(s): M54.42 - Lumbago with sciatica, left side Patient Disposition: Home, Self-Care Instructions: Acute Low Back Pain (ED) Additional Instructions: urine and xray reassuring continue to take motrin and tylenol alternating for pain take all medications with food talk to your doctor about physical therapy limit lifting to 10lbs for 2 weeks return for any worsening symptoms or concerns. incidental finding of benign condition that is usually asymptomatic but can cause mild low back pain: Osteitis condensans ilii (OCI) is?a benign condition characterized by increased density (sclerosis) of the bone in the iliac wing, the part of the pelvis that forms the sacroiliac joint.? Prescriptions: New cyclobenzaprine 10 mg tablet 10 mg PO TID PRN (Reason: muscle spasm) Qty: 20 0RF prednisone 20 mg tablet 40 mg PO DAILY 5 Days Qty: 10 0RF lidocaine 5 % adhesive patch,medicated 1 patch topical DAILY Qty: 30 0RF Rx Instructions: leave on most painful area for up to 12 hrs Referrals: Khushboo Hernandez MD [Primary Care Provider, Internal Medicine] Referral Note: should call to follow up you need physical therapy Stand Alone Forms: Work/School Release Print Language: Citizen Of [place]
[2024-11-21 09:12] VITALS: BP 128/81; PULSE 78; RESP 16; TEMP 36.8; O2SAT 100; BMI 30.7
[2024-11-21 09:17] VITALS: BP 128/81; PULSE 78; RESP 16; TEMP 36.8; O2SAT 100
[2024-11-21 10:00] LABS: Appearance Urine Clear; Glucose Urine UA Negative (Negative); PH 7.0 (5.0-9.0); Specific Gravity - Urine 1.020 (1.005-1.025); UMIC TRIGGER UACC YES
[2024-11-21 10:32] VITALS: BP 128/81; PULSE 78; RESP 16; TEMP 36.8; O2SAT 100
== END 2024-11-21 10:35 | disposition home or self-care (01) ==
PROVIDERS: Emergency Provider Emergency Medicine; PCP Family Medicine
DX: M54.42 Lumbago with sciatica, left side (principal)
CPT/HCPCS: 72100; 81001; 81003; 99283; 99284

== ENCOUNTER → 2024-11-21 09:19 | Outpatient (BNV) | payer MEDICAID, SELFPAY | PROVIDERS: Emergency Provider Emergency Medicine; PCP Family Medicine; Visit Provider Radiology Diagnostic Radiology | DX: N60.01 Solitary cyst of right breast (principal); M47.897 Other spondylosis, lumbosacral region | CPT/HCPCS: 72100; 76642; 77061; 77065 ==